=== PATIENT | male | born 1935 | race Caucasian/White ===

== ENCOUNTER 2016-04-28 07:45 | Day surgery (SDC) | payer MEDICARE ==
[~2016-04-28] VITALS: Ht 172.7 cm; Wt 85.0 kg
[~2016-04-28 07:45] MED LIST: 0.9% Sodium Chloride 1,000 ML IV SCH; ALBU2.5V4 INHALATION; ALBU8.5H2 INHALATION; ASCO-294 PO; ASPI-973 PO; ATEN50TA PO; CETI5TAB28 PO; CHOL10008 PO; FLUT12AE8 IH; FLUT16SP NS; LOVA20TA PO; MULT-1018 PO; OMEP20CA11 PO; Sodium Chloride LOK Flush 10 mL Syringe IV PRN; TAMS0.4C29 PO; fentaNYL-PF 50 mCg/mL 2 mL Inj IVPUSH PRN
[2016-04-28 08:21] VITALS: BP 126/79; PULSE 83; RESP 16; O2SAT 96
[2016-04-28 09:25] VITALS: BP 118/73; PULSE 61; RESP 14; O2SAT 95
[2016-04-28 09:35] VITALS: BP 127/78; PULSE 78; RESP 16; O2SAT 94
[2016-04-28 09:45] VITALS: BP 145/85; PULSE 62; RESP 16; O2SAT 96
--- NOTE | 2016-04-28 09:46 | ENDO ---
[address] [address] ENDOSCOPY PROCEDURE PATIENT: BRYON MADRID : 1935 MR#: [id number] ADMIT: 04/28/2016 JOB ID: [id number] DATE OF SERVICE: 04/28/2016 PREOPERATIVE DIAGNOSES: 1. History of multiple colonic polyps. 2. Diffuse diverticulosis. POSTOPERATIVE DIAGNOSES: 1. Ten colon polyps. 2. Diffuse diverticulosis. PROCEDURE: Colonoscopy to cecum with hot forceps polypectomy and snare polypectomy x2. SURGEON: Chirag Schuler MD. INDICATIONS: An 81-year-old man who has a personal history of esophageal cancer, status post esophagectomy by me many years ago but also has a history of multiple colonic polyps. His last colonoscopy was last year. He has diffuse diverticulosis and always has a poor prep and after discussing options with the patient, it was elected to proceed with a repeat colonoscopy. FINDINGS: He had a total of 10 polyps. He again had diffuse diverticulosis. Because of the diverticulosis he had a poor prep. He had one polyp in the cecum, three at the hepatic flexure, one at the splenic flexure, four in the descending colon and one in the proximal rectum. Retroflexed views of the rectum were obscured by fecaliths. DESCRIPTION OF PROCEDURE: The procedure and sedation plan was discussed with the patient and nursing staff, and a procedural time-out was held. He received 5 mg of Versed and 100 mcg of fentanyl. A digital rectal exam was performed. The Olympus PCF-H180AL video colonoscope was passed transanally, advanced to the cecum, withdrawn with 10 polypectomies done by combination of hot snare and hot forceps as stated above. Again, retroflex views of the rectum were obtained. Visualization of the distal rectum was obscured by fecaliths. There were no apparent complications, and he tolerated the procedure well. There is no apparent bleeding. IMPRESSION: 1. Ten colorectal polyps, all about 5 mm in diameter. 2. Diffuse diverticulosis. 3. Poor prep. RECOMMENDATIONS: Repeat colonoscopy in one year. MODIFIER-22: This was significantly more difficult then a typical colonoscopy with 10 polyps identified in the setting of a poor prep. MTDD
--- NOTE | 2016-05-02 17:08 | PATH ---
SURGICAL PATHOLOGY Attending Physician:Fernando Wells CASE STATUS: Signed Out PATIENT NAME: BRYON MADRID PID: [id number] : 1935 DATE COLLECTED:04/28/2016 16:45 SPECIMEN: 1: Colon, Biopsy 2: Colon, Biopsy 3: Colon, Biopsy 4: Colon, Biopsy 5: Rectum, Biopsy CLINICAL HISTORY: 1). SPLENIC FLEXURE X1 2). CECUM POLYP X1 3). HEPATIC FLEXURE POLYP X3 4). DESCENDING COLON POLYP X4 5). RECTAL POLYP X1 FINAL DIAGNOSIS: 1.SPLENIC FLEXURE, POLYP, BIOPSY: TUBULAR ADENOMA. 2.CECUM, POLYP, BIOPSY: TUBULAR ADENOMA. 3.HEPATIC FLEXURE, POLYPS, BIOPSIES: TUBULAR ADENOMA IN 4 OF 6 FRAGMENTS. 4.DESCENDING COLON, POLYPS, BIOPSIES: TUBULAR ADENOMA IN 1 OF 4 FRAGMENTS. 3 FRAGMENTS OF SERRATED LESIONS, FAVOR HYPERPLASTIC POLYPS. 5.RECTUM, POLYP, BIOPSY: TUBULAR ADENOMA. ICD10 CODE D12.0 D12.3 D12.4 D12.8 GROSS DESCRIPTION: Received are five formalin-filled containers, each labeled with the patient' s name. 1. Received in formalin, labeled with the patient' s name and "splenic flexure polyp x1", is one fragment of palma, soft tissue measuring 0.2 x 0.1 x 0.1 cm. The fragment is totally submitted in cassette 1A. 2. Received in formalin, labeled with the patient' s name and "cecum polyp x1", is one fragment of palma, soft tissue measuring 0.1 x 0.1 x 0.1 cm. The fragment is totally submitted in cassette 2A. 3. Received in formalin, labeled with the patient' s name and "hepatic flexure polyp x3", are three fragments of palma, soft tissue ranging in size from 0.1 x 0.1 x 0.1 cm to 0.4 x 0.3 x 0.2 cm. The larger fragment is divided, and all fragments are totally submitted in cassette 3A. 4. Received in formalin, labeled with the patient' s name and "descending colon polyp x4", are four fragments of palma, soft tissue ranging in size from 0.1 x 0.1 x 0.1 cm to 0.2 x 0.1 x 0.1 cm. All fragments are totally submitted in cassette 4A. 5. Received in formalin, labeled with the patient' s name and "rectal polyp x1", is one fragment of palma, soft tissue measuring 0.1 x 0.1 x 0.1 cm. The fragment is totally submitted in cassette 5A. ([id number]) MICRO DESCRIPTION: See diagnosis. ICD-9 CODES: CPT CODES: 1: 21593 2: 90038 3: 89913 4: 20750 5: 08417 Electronically Signed Out Loren Lan MD [facility] [address], [place] [address] Technical component performed at [facility], [facility] [address], [place], [address]
== END 2016-04-28 23:59 | disposition home or self-care (01) ==
LOC: END 07:45
PROVIDERS: ATTEND Surgery
DX: Z12.11 Encounter for screening for malignant neoplasm of colon (principal); Z86.010 Personal history of colon polyps; D12.0 Benign neoplasm of cecum; D12.3 Benign neoplasm of transverse colon; D12.8 Benign neoplasm of rectum; D12.4 Benign neoplasm of descending colon; I25.10 Atherosclerotic heart disease of native coronary artery without angina pectoris; I10 Essential (primary) hypertension; N40.1 Benign prostatic hyperplasia with lower urinary tract symptoms; R33.9 Retention of urine, unspecified; R39.198 Other difficulties with micturition; E78.5 Hyperlipidemia, unspecified; J45.909 Unspecified asthma, uncomplicated; K21.9 Gastro-esophageal reflux disease without esophagitis; Z87.442 Personal history of urinary calculi; Z87.891 Personal history of nicotine dependence; Z85.01 Personal history of malignant neoplasm of esophagus
CPT/HCPCS: 45384; 45385; 88305; 99153; G0500; J2250; J3010; J7030

== ENCOUNTER 2016-05-09 00:58 | Inpatient (IN) | payer MEDICARE ==
[2016-05-09] VITALS (12 sets, daily range): BP systolic 124–153; BP diastolic 77–90; PULSE 71–97; RESP 15–21; O2SAT 94–97
[~2016-05-09] VITALS: Ht 172.7 cm; Wt 81.4 kg
[~2016-05-09 00:58] MED LIST changes: -0.9% Sodium Chloride 1,000 ML IV SCH; -Sodium Chloride LOK Flush 10 mL Syringe IV PRN; -fentaNYL-PF 50 mCg/mL 2 mL Inj IVPUSH PRN
--- NOTE | 2016-05-09 01:00 | ED.REPORT ---
HPI-General Illness Date of Service May 09, 2016 ED Provider: Dr. Jacinto Darden M.D. 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 The patient also reports shortness of breath. He denies other symptoms. EMS found the patient with a BP of 142/90, an SAO2 of 93, and otherwise normal vital signs. Nursing Notes Stated Complaint: PRODUCTIVE COUGH Nursing Notes Reviewed: Yes Allergies: Coded Allergies: Penicillins (Verified Allergy, Severe, 09/16/15) acetaminophen (Verified Allergy, Severe, 09/16/15) celecoxib (Verified Allergy, Severe, 09/16/15) ibuprofen (Verified Allergy, Severe, 09/16/15) metoclopramide (Verified Allergy, Severe, stomach pains, 09/16/15) propranolol (Verified Allergy, Severe, 09/16/15) pseudoephedrine (Verified Allergy, Severe, 09/16/15) pseudoephedrine HCl (Verified Allergy, Severe, "makes heart skip", 09/16/15 ) sildenafil citrate (Verified Allergy, Severe, "almost killed me", 09/16/15) sulfamethoxazole (Verified Allergy, Severe, 09/16/15) tetracycline (Verified Allergy, Severe, 09/16/15) atenolol (Verified Allergy, Unknown, 09/16/15) clindamycin (Verified Allergy, Unknown, 09/16/15) erythromycin ethylsuccinate (Verified Allergy, Unknown, UNKNOWN, 09/16/15) hydrochlorothiazide (Verified Allergy, Unknown, 09/16/15) levofloxacin (Verified Allergy, Unknown, 09/16/15) trimethoprim (Verified Allergy, Unknown, 09/16/15) Scheduled Albuterol HFA (Proair HFA) 8.5 Gm Hfa.aer.ad 2 PUFFS INHALATION Q4H Ascorbate Calcium (Vitamin C) 500 Mg Tablet 500 MG PO DAILY Aspirin (Aspirin) 81 Mg Tablet 81 MG PO DAILY Atenolol (Atenolol) 50 Mg Tablet 50 MG PO DAILY Cetirizine (Cetirizine) 5 Mg Tablet 10 MG PO DAILY Cholecalciferol (Vitamin D3) (Vitamin D3) 1,000 Unit Tab.chew 1,000 UNIT PO DAILY Fluticasone Propionate (Fluticasone Propionate Nasal) 16 Gm [place].susp 1 SPRAY NS BID Fluticasone Propionate (Flovent HFA 110 mcg) 12 Gm Aer.w.adap 1 PUFF IH BID Lovastatin (Lovastatin) 20 Mg Tablet 20 MG PO HS Multivitamin (Multi Vitamin Daily) 1 Each Tablet 1 EACH PO DAILY Omeprazole (Omeprazole) 20 Mg Capsule.dr 20 MG PO BID Tamsulosin ER (Tamsulosin ER) 0.4 Mg Cap.er.24h 0.4 MG PO DAILY Scheduled PRN Albuterol Neb Soln (Albuterol Neb Soln) 2.5 Mg/3 Ml Vial.neb 2.5 MG INHALATION Q4H PRN PRN For Shortness of Breath General Time Seen by MD: 01:00 Chief Complaint Cough Hx Obtained From: Patient Arrived By: Ambulance Sudden in Onset?: Yes Onset Occurred: 1 - 4 hours ago Symptom Duration: Since onset Severity: Current: No pain currently Severity: Maximum: No pain Associated with: Reports: Shortness of breath Pertinent Negative: Relieved by nothing Context Related History: Reports Asthma, Reports Cancer Recent Healthcare: No recent doctor visit Past Medical History Past Medical History Notes: PCP: Dr. 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 Physical Exam Vital Signs Vital Signs Date Time Temp Pulse Resp B/P Pulse Ox O2 Delivery O2 Flow Rate FiO2 05/09/16 04:05 97 21 145/88 96 Room Air 05/09/16 04:00 36.8 76 16 144/77 97 Room Air 05/09/16 01:28 76 16 97 Room Air 05/09/16 01:06 36.8 77 15 144/77 95 Room Air Initial VS: Reviewed Head / Eyes: Atraumatic, Normocephalic ENT: Conjunctiva normal, No scleral icterus Cardiovascular: Regular rate & rhythm, Heart sounds normal Abdomen / GI: Soft, Non-tender Skin: Warm, Dry, No cyanosis Neurologic: Alert, Oriented, Nonfocal Psychiatric: Mood/affect normal, Behavior normal, Normal thought content General/Constitutional: Awake, Alert, No acute distress Respiratory / Chest: Breath sounds = bilat, No respiratory distress Wheezing / Retractions: Positive: Wheezing expiratory (Bilateral) Rhonchus cough Interpretation & Diagnostics INFLUENZA NEGATIVE Lab Results Interpretation Result Diagram: 05/09/16 0140 05/09/16 0140 Test 05/09/16 01:40 05/09/16 03:40 White Blood Count 10.4th/mm3 (3.8-10.1) Red Blood Count 4.82mil/mm3 (4.40-5.80) Hemoglobin 15.4g/dL (13.8-17.2) Hematocrit 46.3% (41.0-50.0) Mean Corpuscular Volume 96.1fL (81-100) Mean Corpuscular Hemoglobin 32.0pg (27.0-35.0) Mean Corpuscular Hemoglobin Concent 33.3% (32.0-37.0) Red Cell Distribution Width 13.2% (12.3-15.4) Platelet Count 169bil/L (150-400) Neutrophils (%) (Auto) 73.8% (40-74) Lymphocytes (%) (Auto) 13.7% (14-46) Monocytes (%) (Auto) 8.9% (4-12) Eosinophils (%) (Auto) 2.8% (0-5) Basophils (%) (Auto) 0.5% (0-3) Prothrombin Time 10.1sec (8.1-12.5) Prothromb Time International Ratio 0.95ratio D-Dimer 5.7mg/L (<0.50) Sodium Level 140mEq/L (134-144) Potassium Level 4.1mEq/L (3.5-5.2) Chloride Level 101mEq/L (97-108) Carbon Dioxide Level 26mmol/L (18-29) Blood Urea Nitrogen 14mg/dL (8-27) Creatinine 0.93mg/dL (0.76-1.27) Estimat Glomerular Filtration Rate 83mL/min (>59) Glucose Level 120mg/dL (60-99) Lactic Acid Level 1.4mmol/L (0.4-2.0) Calcium Level 9.1mg/dL (8.5-10.1) Magnesium Level 2.3mg/dL (1.6-2.6) Total Bilirubin 0.3mg/dL (0.0-1.2) Aspartate Amino Transf (AST/SGOT) 23U/L (0-50) Alanine Aminotransferase (ALT/SGPT) 25U/L (0-44) Alkaline Phosphatase 122U/L (25-160) Troponin T 0.010ug/L (0.0-0.011) Pro-B-Type Natriuretic Peptide 168.4pg/mL (0-486) Total Protein 7.2g/dL (6.4-8.4) Albumin 4.4g/dL (3.4-5.0) Procalcitonin 0.03ng/mL (0.00-0.08) Urine Color Yellow (YELLOW) Urine Appearance Cloudy (CLEAR,HAZY) Urine pH 6.0 (5.0-8.0) Urine Specific [place] 1.005 (1.003-1.035) Urine Protein Tracemg/dL (NEG,TRACE) Urine Glucose (UA) Negativemg/dL (NEGATIVE) Urine Ketones Negativemg/dL (NEGATIVE) Urine Occult Blood Large (NEGATIVE) Urine Nitrite Negative (NEGATIVE) Urine Bilirubin Negative (NEGATIVE) Urine Urobilinogen Normalmg/dL (NORMAL) Urine Leukocyte Esterase Large (NEGATIVE) Urine RBC 3-10/hpf (0-2) Urine WBC >50/hpf (0-5) Urine Epithelial Cells Occasional/hpf (NONE-MOD) Urine Crystals None seen (NONE SEEN) Urine Bacteria Moderate/hpf (NONE-FEW) Urine Hyaline Casts None/lpf (NONE) Urine Granular Casts None seen (NONE SEEN) Urine Waxy Casts None seen (NONE SEEN) Urine Red Blood Cell Casts None seen (NONE SEEN) Urine White Blood Cell Casts None seen (NONE SEEN) Urine Mucus Present (None Seen) Urine Trichomonas None seen (NONE SEEN) Urine Yeast None (NONE SEEN) Urinalysis Comment None Urine Culture Reflexed Indicated ECG Interpretation ECG Interpretation: Sinus or ectopic atrial rhythm rate 74 Time: 01:21 Interpreted by: ED physician X-Ray Chest Interpretation Chest Xray Interpretation: Bilateral atelectasis at bases Nothing acute View: AP & lat Interpretation / Wet Read by: Wet read ED physician CT Chest Interpretation CONCLUSION: Bilateral pulmonary emboli. Findings discussed with Dr. Darden at 05/09/2016 - 3:28:51 AM PDT Study type: CT pulm angiogram Interpretation / Wet Read by: Interpret - Radiologist (Gab Ortiz M.D. ) Re-Eval/Medical Decision Med Decision/Clinical Course 81-year-old presents with shortness of breath cough which is minimally productive, and mild hypoxemia at 93% on room air. D-dimer is grossly elevated at five and CT angiogram reveals bilateral pulmonary emboli. Admitted now in stable condition for IV heparin and further evaluation. No particular risk factors for pulmonary emboli, and recent evaluation for recurrence of his remote esophageal cancer is negative, other cancers may be behind his current hypercoagulable state Source of Hx: Old records Time of Eval: 03:50 Patient Status: Condition improved Re-Evaluation/Progress Note: Discussed with patient x-ray, CT, and lab results, diagnosis, and plan for admit. Patient agrees with plan for care and all questions were addressed. Consultation : Referral / Consult Name: Meggan Webb DO Consulted With: Hospitalist Call Returned at: 03:56 Metal Furnace Operator: Agrees with eval, Agrees with plan, Accepts admit Counseled Regarding: Diagnosis, Lab results, Need for admission Discharge & Departure Shift Change Sign-Out Response to Therapy: Improved Primary Impression: Bilateral pulmonary embolism Disposition: ADMITTED TO HOSPITAL Discharge Condition All VS Reviewed: Yes Condition: Improved Referrals: Alexy Machado MD (PCP) Gisell Attestation Portions of this note were transcribed by Ashlie Ruff. I, Dr. Darden, personally performed the history, physical exam, and medical decision-making; I reviewed and confirmed the accuracy of the information in the transcribed note. Signed by: Gisell Rivera, 05/09/2016, 04:30 copies to: Alexy Machado MD, Christopher W MD May 09, 2016 01:00 ASHLIE RUFF May 09, 2016 01:13
[2016-05-09] MEDS ORDERED: 0.9% Sodium Chloride 1,000 ML IV ONE (01:11)
[2016-05-09] MEDS ORDERED: Albuterol 2.5 mg/3 mL Inhalation Solution NEB ONE (01:15)
[2016-05-09] MEDS ORDERED: Albuterol-Ipratropium 3 mL Inhalation Solution NEB ONE (01:15)
[2016-05-09 01:47] LABS: BASOPHILS % (AUTO) 0.5 % (0-3); EOSINOPHILS % (AUTO) 2.8 % (0-5); MONOCYTES % (AUTO) 8.9 % (4-12); Mean Corpuscular Volume 96.1 fL (81-100); NEUTROPHILS % (AUTO) 73.8 % (40-74); Platelet Count 169 bil/L (150-400)
[2016-05-09 02:08] LABS: INR 0.95 ratio
[2016-05-09 02:16] LABS: D-DIMER 5.7 mg/L (<0.50)
[2016-05-09 02:20] LABS: TROPONIN T 0.01 ug/L (0.0-0.011)
[2016-05-09 02:31] LABS: Magnesium 2.3 mg/dL (1.6-2.6)
[2016-05-09 03:50] LABS: APPEARANCE,URINE CLOUDY (CLEAR,HAZY); COLOR,URINE YELLOW (YELLOW); OCCULT BLOOD,URINE LARGE (NEGATIVE); UROBILINOGEN,URINE NORMAL (NORMAL)
[2016-05-09] MEDS ORDERED: Heparin 5,000 Unit/mL Inj IVPUSH PRN (04:00)
[2016-05-09] MEDS ORDERED: Heparin 5,000 Unit/mL Inj IVPUSH ONE (04:00)
[2016-05-09] MEDS ORDERED: Alum-Mag Hydrox-Simeth 30 mL Suspension PO PRN (04:40)
[2016-05-09] MEDS ORDERED: Ondansetron 2 mg/mL 2 mL Inj IVPUSH PRN (04:40)
[2016-05-09] MEDS ORDERED: Polyethylene Glycol (PEG) 17 Gm Powder PO PRN (04:40)
[2016-05-09] MEDS: Heparin 25K Unit/500mL 0.45 NS 25,000 UNIT in IV Premix 1 EACH IV SCH ×3 (04:49→22:46)
--- NOTE | 2016-05-09 04:59 | PCM.HPMED ---
Subjective Date of Service May 09, 2016 Primary Provider: Admitting Physician: Meggan Webb DO Primary Care Physician: Alexy Machado MD Attending Physician: Meggan Webb DO Admit Status: From the Emergency Department, [facility] Telemetry Chief Complaint: Shortness of breath History of Present Illness: Mr. 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 The patient also reports associated shortness of breath after he cannot stop coughing and "spitting up the thick yellow stuff." He denies any cough or shortness of breath prior to this. No recent sick contact or long drive/air flight. He also denies fever, chills, chest pain, headache, hemoptysis, bloody stool, or any other symptoms. He admits some runny nose and mild sore throat from the cough. He does not know his medications or if he got a flu shot this year. He uses the inhaler intermittently for Asthma. He cannot verify the reaction to the drug allergies. Patient has a history of "massive PE" after his esophagogastrectomy surgery in 2001. He reports that his symptoms this time are not as bad and is curious about how he got the blood clots in his lung. Patient's cough has subsided and he denies any symptoms at this time. EMS found the patient with a BP of 142/90, an SAO2 of 93, and otherwise normal vital signs. In the ED, his vital signs were normal as well besides BP of 144/ 72. He was found to have elevated D-Dimer and CT angiogram showed bilateral pulmonary embolism. Heparin drip was initiated. Procalcitonin 0.03 and negative Influenza screen. Review of Systems: A comprehensive review of systems was conducted with the patient and found to be negative except as above in the History of Present Illness. Allergies Coded Allergies: Penicillins (Verified Allergy, Severe, 09/16/15) acetaminophen (Verified Allergy, Severe, 09/16/15) celecoxib (Verified Allergy, Severe, 09/16/15) ibuprofen (Verified Allergy, Severe, 09/16/15) metoclopramide (Verified Allergy, Severe, stomach pains, 09/16/15) propranolol (Verified Allergy, Severe, 09/16/15) pseudoephedrine (Verified Allergy, Severe, 09/16/15) pseudoephedrine HCl (Verified Allergy, Severe, "makes heart skip", 09/16/15 ) sildenafil citrate (Verified Allergy, Severe, "almost killed me", 09/16/15) sulfamethoxazole (Verified Allergy, Severe, 09/16/15) tetracycline (Verified Allergy, Severe, 09/16/15) atenolol (Verified Allergy, Unknown, 09/16/15) clindamycin (Verified Allergy, Unknown, 09/16/15) erythromycin ethylsuccinate (Verified Allergy, Unknown, UNKNOWN, 09/16/15) hydrochlorothiazide (Verified Allergy, Unknown, 09/16/15) levofloxacin (Verified Allergy, Unknown, 09/16/15) trimethoprim (Verified Allergy, Unknown, 09/16/15) Home Medications Scheduled Albuterol HFA (Proair HFA) 8.5 Gm Hfa.aer.ad 2 PUFFS INHALATION Q4H Ascorbate Calcium (Vitamin C) 500 Mg Tablet 500 MG PO DAILY Aspirin (Aspirin) 81 Mg Tablet 81 MG PO DAILY Atenolol (Atenolol) 50 Mg Tablet 50 MG PO DAILY Cetirizine (Cetirizine) 5 Mg Tablet 10 MG PO DAILY Cholecalciferol (Vitamin D3) (Vitamin D3) 1,000 Unit Tab.chew 1,000 UNIT PO DAILY Fluticasone Propionate (Fluticasone Propionate Nasal) 16 Gm [place].susp 1 SPRAY NS BID Fluticasone Propionate (Flovent HFA 110 mcg) 12 Gm Aer.w.adap 1 PUFF IH BID Lovastatin (Lovastatin) 20 Mg Tablet 20 MG PO HS Multivitamin (Multi Vitamin Daily) 1 Each Tablet 1 EACH PO DAILY Omeprazole (Omeprazole) 20 Mg Capsule.dr 20 MG PO BID Tamsulosin ER (Tamsulosin ER) 0.4 Mg Cap.er.24h 0.4 MG PO DAILY Scheduled PRN Albuterol Neb Soln (Albuterol Neb Soln) 2.5 Mg/3 Ml Vial.neb 2.5 MG INHALATION Q4H PRN PRN For Shortness of Breath PMH Reports Asthma, HTN, and esophageal adenocarcinoma s/p esophagogastrectomy ( 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 Lives with at home. Exam Vital Signs Vital Sign - Last Date Time Temp Pulse Resp B/P Pulse Ox O2 Delivery O2 Flow Rate FiO2 05/09/16 04:05 97 21 145/88 96 Room Air 05/09/16 04:00 36.8 Intake and Output 05/08/16 05/08/16 05/09/16 Cumulative From/Thru 15:00 23:00 07:00 05/09/16 01:55 - 05/09/16 04:00 Intake Total 1000 ml 1000 ml Balance 1000 ml 1000 ml Intake IV Total 1000 ml 1000 ml Exam General: Talkative, No acute distress, well-developed, well-nourished, extremely hard of hearing even with bilateral hearing aids HEENT: Normocephalic, atraumatic. External ears without defect. Pupils equal, round, and reactive to light and accommodation. Anicteric sclerae, moist conjunctivae, and no lid lag. Oropharynx free of erythema and cobble stoning with moist mucosa. Neck: Supple with full range of motion. No jugular venous distension. No bruits. No lymphadenopathy or thyromegaly. Cardiovascular: Regular rate and rhythm with no murmurs, rubs, or gallops appreciated Pulmonary: Mild scattered crackles. No wheezes or rhonchi noted. No cough observed. Normal respiratory effort with no use of accessory muscles. Abdomen: Bowel tones present. Soft, nontender, nondistended. No hepatosplenomegaly or masses appreciated. Extremities: No clubbing, cyanosis, edema, or lymphadenopathy appreciated. No calf tenderness Skin: Normal temperature, turgor, and texture; no rash, ulcers, or subcutaneous nodules appreciated. Neurological: Cranial nerves grossly intact. Normal muscle strength and tone. Sensory function within normal limits. Psychiatric: Normal mood and affect. Alert and oriented to person, place, and time. Lab and Diagnostics Result Diagram: 05/09/16 0140 05/09/16 0140 12-lead ECG Sinus rate (74) and rhythm with no acute ischemic changes. 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 He was found to have bilateral pulmonary embolism on the CT angio and thus was admitted. 1. Acute, unprovoked bilateral pulmonary embolism, present on admission, active. - Patient presented with dyspnea and productive cough. Currently hemodynamically stable, thus no indication for thrombolytic therapy. - Elevated D-Dimer (5.9) and PE was confirmed with CT angio. - Respiratory support with supplemental oxygen as needed for SpO2>90%. - Continue Heparin gtt. Consider starting anticoagulation such as Warfarin. - Check Echo in the AM. No Echo on our record. - UA positive for bacteria and WBC. Urine culture pending. No other sign of infection, thus will hold off on starting antibiotics. - Continue to monitor vital signs. - Encourage ambulation. 2. Intermittent asthma, chronic, stable. - Resume Albuterol inhaler PRN 3. Remote history of esophageal adenocarcinoma, presumed stable. - Need to follow up as outpatient to determine if 4. Hypertension, chronic, stable. - Continue home Atenolol after medication reconciliation. (Atenolol listed in the allergy list but patient states he might take Atenolol). - Continue to monitor. 5. Hyperlipidemia, chronic, stable. - Resume home Lovastatin 20mg HS 6. Enlarged prostate, chronic, presume stable. - Continue Tamsulosin. 7. Medication reconciliation: to be done by the day team. Patient stated that his knows more about his medical issues than he does. 8. CODE STATUS: FULL per the patient. Patient is admitted under inpatient status with expected length of stay greater than 2 midnights due to severity of presenting symptoms, risk of adverse event, and complexity of treatment plan. Pain Evaluation: Adequate Pain Control GI Prophylaxis: H2 heriberto VTE Prophylaxis: Other (heparin ggt) Resuscitation Status: CPR: Attempt Resuscitation Attending Statement The patient was seen and examined together with house staff on 05/09/2016 and I agree with the history, exam and plan as outlined in the note above. copies to: Alexy Machado MD, Ngochanh H DO May 09, 2016 04:59 Meggan Webb DO May 28, 2016 21:49
--- NOTE | 2016-05-09 05:46 | NUR ---
admission patient admitted heparin gtt infusing. very hard of hearing. tele SR reviewed plan of care
--- NOTE | 2016-05-09 05:47 | NUR ---
med rec not complete unable to complete med rec. patient poor historian
--- NOTE | 2016-05-09 09:01 | PCM.PNMED ---
Subjective Date of Service May 09, 2016 Subjective Patient has a cough productive of yellow phlegm. No dyspnea or chest pain. No leg pain or swelling. No nausea vomiting or abdominal pain. Exam Vital Signs Vital Sign - Last Date Time Temp Pulse Resp B/P Pulse Ox O2 Delivery O2 Flow Rate FiO2 05/09/16 05:30 Supplement Oxygen 05/09/16 05:20 36.8 94 16 124/86 96 Intake and Output 05/08/16 05/08/16 05/09/16 Cumulative From/Thru 15:00 23:00 07:00 05/09/16 01:55 - 05/09/16 05:25 Intake Total 1000 ml 1000 ml Balance 1000 ml 1000 ml Intake IV Total 1000 ml 1000 ml Exam Oriented 3, fluent speech Anicteric sclera Neck is supple. Lungs are clear with normal rate and effort. Heart is regular without murmur gallop or rub Abdomen soft nontender. Extremities with 1+ edema bilaterally good pedal pulses. IVs and Medications Medications Reviewed: Medications were reviewed in detail Lab and Diagnostics Result Diagram: 05/09/16 0140 05/09/16 0140 12-lead ECG Sinus rate (74) and rhythm with no acute ischemic changes. 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 He was found to have bilateral pulmonary embolism on the CT angio and thus was admitted. 1. Acute, unprovoked bilateral pulmonary embolism, present on admission, active. - Patient presented with dyspnea and productive cough. Currently hemodynamically stable, thus no indication for thrombolytic therapy. - Elevated D-Dimer (5.9) and PE was confirmed with CT angio. - Respiratory support with supplemental oxygen as needed for SpO2>90%. - Continue Heparin gtt. Consider starting anticoagulation such as Warfarin. - Check Echo in the AM. No Echo on our record. - UA positive for bacteria and WBC. Urine culture pending. No other sign of infection, thus will hold off on starting antibiotics. - Continue to monitor vital signs. - Encourage ambulation. No change to her medical plan. We will obtain a 2-D echo this morning. We will also begin oral anticoagulation. 2. Intermittent asthma, chronic, stable. - Resume Albuterol inhaler PRN The patient is coughing up green sputum. We will continue to follow clinically. 3. Remote history of esophageal adenocarcinoma, presumed stable. - Need to follow up as outpatient to determine if 4. Hypertension, chronic, stable. - Continue home Atenolol after medication reconciliation. (Atenolol listed in the allergy list but patient states he might take Atenolol). - Continue to monitor. 5. Hyperlipidemia, chronic, stable. - Resume home Lovastatin 20mg HS 6. Enlarged prostate, chronic, presume stable. - Continue Tamsulosin. 7. Medication reconciliation: to be done by the day team. Patient stated that his knows more about his medical issues than he does. 8. CODE STATUS: FULL per the patient. Patient is admitted under inpatient status with expected length of stay greater than 2 midnights due to severity of presenting symptoms, risk of adverse event, and complexity of treatment plan. Pain Evaluation: Adequate Pain Control GI Prophylaxis: H2 heriberto VTE Prophylaxis: Other (heparin ggt) Resuscitation Status: CPR: Attempt Resuscitation Time spent 25 minutes Wang Schuler MD May 09, 2016 09:01
--- NOTE | 2016-05-09 09:47 | DRSVH ---
PROCEDURE: CT ANGIO CHEST PULMONARY EMBOLISM ([id number]) INDICATIONS: dimer 5 TECHNIQUE: After the administration of intravenous contrast, 2 mm thick sections acquired from the pulmonary api xenia to the posterior costophrenic angles. 3-dimensional maximum intensity projection (MIP) coronal a nd sagittal reformats were then acquired through the thorax. For radiation dose reduction, the follo wing was used: automated exposure control, adjustment of mA and/or kV according to patient size. COMPARISON: None. FINDINGS: Image quality: Excellent. Pulmonary arteries: Multiple filling defects noted in left upper lobe, right upper lobe, right middle lobe and right lower lobe pulmonary arteries compatible with pulmonary emboli. Lungs and pleura: Lungs are clear. No pleural effusions or pneumothorax. Central and peripheral ai rways are patent. Mediastinum: Heart size is normal, without pericardial effusion. No mediastinal or hilar adenopathy . Thoracic aorta is normal in caliber and enhancement. Atherosclerotic calcifications are noted in t he aorta, great vessels and the coronary vasculature. Postsurgical changes compatible with esophagect luis and gastric pull through procedure noted. Bones and chest wall: No suspicious bony lesions. Ribs and thoracic spine appear intact throughout. Thyroid gland 1 cm hypoattenuating nodule in the left lobe. No axillary or supraclavicular adenopa thy. Abdomen: Calcifications noted in the pancreas compatible chronic pancreatitis. Visualized upper abdo augustina solid organs otherwise appear normal in the early arterial phase of enhancement. Scattered dive rticuli in the visualized colon without evidence of diverticulitis. IMPRESSION: 1. Abnormal study demonstrating bilateral pulmonary emboli. 2. Status post esophagectomy with gastric pull-through. 3. 1 cm left thyroid nodule. 4. Colonic diverticulosis without evidence of diverticulitis. 5. Atherosclerosis including the coronary vasculature. Dictated by: Mague Oden MD, PhD on 05/09/2016 at 9:42 Approved by: Mague Oden MD, PhD on 05/09/2016 at 9:46
[2016-05-09] MEDS ORDERED: ATOR10TA66 PO (10:02)
[2016-05-09] MEDS ORDERED: FINA5TAB9 PO (10:05)
--- NOTE | 2016-05-09 10:45 | DRSVH ---
PROCEDURE: X-RAY CHEST, TWO VIEWS ([id number]) INDICATIONS: COUGH, SPUTUM. TECHNIQUE: Two views of the chest were acquired. COMPARISON: [facility], CR, XR CHEST 2VW, 06/25/2015, 9:09. FINDINGS: Surgical changes and devices: Surgical clips within the superior mediastinum and left neck as well as the upper abdomen. Lungs and pleura: No pleural effusions or pneumothorax. Lungs are clear. Large hiatal hernia prese nt. Lung volumes are increased with flattening of the hemidiaphragms suggesting COPD. Mediastinum: Mediastinal contours are normal. Heart size is normal. Bones and chest wall: No suspicious bony abnormalities. Soft tissues appear unremarkable. IMPRESSION: 1. No acute cardiopulmonary disease. Dictated by: Gennaro AGUERO Interpreted: Mague Oden MD on 05/09/2016 at 8:49 Transcribed by: NORY on 05/09/2016 at 13:44 Approved by: Mague Oden MD, PhD on 05/09/2016 at 16:30
--- NOTE | 2016-05-09 11:21 | DRSVH ---
[facility] [address] [place] [address] Echocardiogram Report Name: BRYON MADRID LStudy Date: 05/09/2016 Height: 68 in Hospital Exam Location: [facility] Weight: 18 8 lb Gender: Male BSA: 2.0 m2 : 1935 Age: 81 yrs BP: 124/86 mmHg Reason For Study: Pulmonary- Embolism Ordering Physician: HOSPITALIST [facility] Performed By: Bekah Fernando Referring Physician: Dr. Alexy Machado Interpretation Summary Technically difficult study limit valve visualization. 1) Normal left ventricular thickness, size, wall motion, and systolic function (EF 60-65%). 2) Proximal septal thickening present, but no left ventricular outflow gradient present. 3) Normal right ventricular size and function. 4) Grade 2 diastolic dysfunction present consistent with elevated filling pressures. 5) Age related calcification of the aortic valve but no significant stenosis or regurgitation present. 6) Mild pulmonary hypertension present, estimated systolic pulmonary pressure of 38mmHg. 7) No prior Echo available for comparison. Procedure: A two-dimensional transthoracic echocardiogram with color flow and Doppler was performed. There is no prior echocardiogram noted for this patient. The study quality was technically adequate. The patient was in normal sinus rhythm during the exam. Left Ventricle: The left ventricle is normal in size. Proximal septal thickening is noted. The ejection fraction is estimated to be 60-65%. The left ventricular ejection fraction is normal. There are no obvious focal wall motion abnormalities noted but poor endocardial definition reduces the sensitivity for the detection of such. Assessment of diastolic parameters suggests a pseudonormalization pattern, consistent with elevated filling pressures. Right Ventricle: The right ventricle is at the upper limits of normal in size. The right ventricular systolic function is normal. Atria: The left atrium is severely dilated. Right atrial size is normal. There is no Doppler evidence for an interatrial shunt. Mitral Valve: There is mild mitral annular calcification. The mitral valve leaflets are mildly calcified. There is trace mitral regurgitation. Aortic Valve: The aortic valve is mildly calcified. Leaflet mobility is mildly reduced. The aortic valve is not well visualized. The peak aortic velocity is 2.1 m/sec. The calculated aortic valve area is 2.8 cm2. The aortic valve mean gradient is 7.8 mmHg. There is no aortic valve stenosis. There is trace aortic regurgitation. Tricuspid Valve: The tricuspid valve is normal in structure and function. There is a trace or physiologic amount of tricuspid regurgitation. The right ventricular systolic pressure is estimated at 38 mmHg assuming a right atrial pressure of 8 mm Hg. Pulmonic Valve: The pulmonic valve is not well seen, but is grossly normal. There is no pulmonic valvular regurgitation. Great Vessels: The aortic root is normal size. The ascending aorta is mildly enlarged. The aortic arch is at the upper limits of normal in size. The pulmonary artery is normal size. The IVC is of normal diameter and collapses less than 50% with a sniff. This suggests a right atrial pressure of 8 mm Hg. Pericardium/ Pleura There is no pericardial effusion. MMode/2D Measurements & Calculations LVIDd: 4.5 cm RA long axis LVOT diam: 2.2 cm LVIDs: 2.6 cm LA A2 area: 27.1 cm AoV Opening FS: 43.1 % LA A4 area: 31.8 cm RA area EPSS: 0.74 cm LA length (vol) Ao root diam IVSd: 1.3 cm : 18.9 cm LVPWd: 0.83 cm LA vol: 106.4 ml RA vol Aortic Jxn: 3.2 cm LA vol index : 48.3 ml asc Aorta Diam RA : 24.2 mm2 Ao Arch Diam (Prox IVC diam: 1.9 cm Trans): 3.2 cm LV cook. diameter/BSA LV sys. diameter/BSA RVD1 (basal) TAPSE: 2.4 cm (cm/m^2): 2.3 (cm/m^2): 1.3 Doppler Measurements & Calculations Ao V2 max MV E max mandeep MV E/A: 0.65 TR max mandeep : 208.2 cm/sec : 89.7 cm/sec Med Peak E' Mandeep : 273.3 cm/sec Ao max PG MV A max mandeep TR max PG : 17.3 mmHg : 137.6 cm/sec E/E' med: 17.0 : 29.9 mmHg Ao mean PG MV P1/2t: 54.0 msec Lat Peak E' Mandeep PA V2 max : 105.8 cm/sec LVOT Max Mandeep E/E' lat: 12.3 PA mean PG : 111.5 cm/sec E/e' average: 14.7 Pulm A Revs Dur PA Accel Time ALMITA(I,D): 2.8 cm : 0.11 sec sev ratio MV A dur: 0.13 sec MV dec time MV P1/2t max mandeep Ao V2 mean LV V1 max PG : 0.18 sec : 127.7 cm/sec MVA(P1/2t): 4.1 cm2 Ao V2 VTI: 36.8 cm LV V1 VTI ALMITA(V,D): 2.1 cm2 : 25.6 cm PA V2 mean ALMITA indexed to BSA Pulm A Revs Dur - MV A : 67.8 cm/sec (cm^2/m^2): 1.4 Dur: -0.00 msec Reading Physician:11:20 AM
[2016-05-09] MEDS ORDERED: CLOTRIMAZOLE TOP (13:38)
[2016-05-09] MEDS ORDERED: FLUT12AE8 IH (13:38)
[2016-05-09] MEDS ORDERED: OLP.1OP5 AFFECT_EYE (13:42)
--- NOTE | 2016-05-09 16:47 | NUR ---
spiritual care: pt request pt a concise historian in terms of his personal history and hoang expression. 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 Pt also discussed his health history in detail, describing extensive GI surgery and its impact on him. Pt animated, pleasant, and expressing "not worried" as he described his health situation. at bedside, supportive. Prayer.
--- NOTE | 2016-05-09 18:28 | NUR ---
HEPARIN P-Patient on heparin drip for bilateral PE. I-1600 PTT was 136. Heparin drip stopped for hour and turned down from 20 units to 16units/kg/hr. E- Nest PTT 2200. Patient denies chest pain, ra O2 sat 94%.
[2016-05-09] MEDS: Fluticasone 0.05% 15 Spray/2 Gm 16 Gm Nasal Spray NASAL SCH (22:47)
[2016-05-10] VITALS (8 sets, daily range): BP systolic 127–156; BP diastolic 83–99; PULSE 61–78; RESP 18–22; O2SAT 94–96
--- NOTE | 2016-05-10 02:40 | NUR ---
Med Rec: Med rec had been completed by RN, however still not reviewed by MD. Per shift report RN had notified day team. Message sent to NOC hospitalist- only order received was for nasal spray.
[2016-05-10] MEDS: Fluticasone 0.05% 15 Spray/2 Gm 16 Gm Nasal Spray NASAL SCH ×3 (08:19→21:03)
--- NOTE | 2016-05-10 12:32 | NUR ---
Social Work Note: Initial Assessment Data& Assessment: EMR reviewed. SW met with pt at bedside to discuss discharge planning, SW role explained. Paul Webb is a 81 year old male admitted on 05/09/2016 for bilateral pulmonary embolism. Pt has Medicare and [employer] supplemental insurance coverage. Pt sees Dr. Alexy Machado for primary care. Pt lives in [place] with his and is independent at baseline. Pt does not use any DME at home, however he does sleep in a hospital bed for comfort. Pt lives in a manufactured home with 4 steps to enter the home. Pt drives. Pt does not have HH or SNF hx. Pt does not have LTC insurance or VA benefits. Pt is currently independent in his room. Pt has completed DPOA/Advance Directive paperwork completed, SW requested a copy for his chart. Pt to transport pt home when medically ready. Pt denies any other needs at this time. SW to continue to follow if any needs arise. Plan:Anticipated discharge home via POV when medically ready. Pt to transport pt home when medically ready. Pt denies any other needs at this time. SW to continue to follow if any needs arise. MADISON Aleman Addendum: 05/10/16 at 1239 by LEAH CARMONA Amended: Links added.
--- NOTE | 2016-05-10 14:23 | DRSVH ---
PROCEDURE: US VENOUS LEG DUPLEX BILATERAL INDICATIONS: PE TECHNIQUE: Real-time imaging, as well as color and pulse Doppler interrogation, were performed of the deep veins of both legs from the inguinal ligament to the popliteal fossa. COMPARISON: None. FINDINGS: On the right deep veins are normally compressible, and free of intraluminal thrombus. Union r and pulse Doppler demonstrate normal phasic intravascular flow. There is normal augmentation respo nse to distal compression maneuver. In contrast, on the left there is DVT seen within the mid-to-dis mohan superficial femoral vein. This does not extend into the popliteal vein. IMPRESSION: No DVT found on the right. On the left, however, there is DVT seen within the mid-to-dis mohan superficial femoral vein, without extension into the popliteal vein. Dictated by: Anuj Dias M.D. on 05/10/2016 at 13:16 Approved by: Anuj Dias M.D. on 05/10/2016 at 14:22
--- NOTE | 2016-05-10 14:48 | PCM.PNMED ---
Subjective Date of Service May 10, 2016 Subjective He is doing well. He denies any leg pain or swelling. No cough or dyspnea. No dyspnea on exertion. No hemoptysis. No nausea vomiting or diarrhea. He does note a week ago he tried to use his exercise bike for the first time in a long time and can only go about 10 minutes without having dyspnea compared to a half-hour before. Exam Vital Signs Vital Sign - Last Date Time Temp Pulse Resp B/P Pulse Ox O2 Delivery O2 Flow Rate FiO2 05/10/16 12:23 36.6 70 18 141/86 96 Room Air Intake and Output 05/09/16 05/09/16 05/10/16 Cumulative From/Thru 15:00 23:00 07:00 05/09/16 01:55 - 05/10/16 05:28 Intake Total 560 ml 795 ml 2355 ml Output Total 2 ml 2 ml Balance 558 ml 795 ml 2353 ml Intake Oral 560 ml 500 ml 1060 ml IV Total 295 ml 1295 ml Output Urine Total 2 ml 2 ml # Voids 3 3 # Bowel Movements 0 0 0 Exam Alert oriented 3, no distress. Fluent speech Neck supple. Lungs are clear with normal rate and effort. Heart is regular without murmur gallop or rub. Abdomen soft nontender Extremities pedal edema good pedal pulses. Skin is free of rash or lesions. IVs and Medications Medications Reviewed: Medications were reviewed in detail Lab and Diagnostics Result Diagram: 05/09/16 0140 05/09/16 0140 12-lead ECG Sinus rate (74) and rhythm with no acute ischemic changes. 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 He was found to have bilateral pulmonary embolism on the CT angio and thus was admitted. 1. Acute, unprovoked bilateral pulmonary embolism, present on admission, active. - Patient presented with dyspnea and productive cough. Currently hemodynamically stable, thus no indication for thrombolytic therapy. - Elevated D-Dimer (5.9) and PE was confirmed with CT angio. - Respiratory support with supplemental oxygen as needed for SpO2>90%. - Continue Heparin gtt. Consider starting anticoagulation such as Warfarin. - Check Echo in the AM. No Echo on our record. - UA positive for bacteria and WBC. Urine culture pending. No other sign of infection, thus will hold off on starting antibiotics. - Continue to monitor vital signs. - Encourage ambulation. 2-D echocardiogram reveals mild heart strain. The patient has been on unfractionated heparin drip for 2 days. He would like to discharge tomorrow on May 11. I believe he is a reasonable candidate for Apixiban (Eliquis). We will duplex ultrasound his legs today to rule out a massive clot burden. Assuming that this is reasonable he likely can have his heparin stopped tomorrow and be sent out with a DEXA band 10 mg twice a day for 7 days and then 5 mg twice a day for 3-6 months. I will get social work Prescriptions today and have these run through his insurance for preauthorization. 2. Intermittent asthma, chronic, stable. - Resume Albuterol inhaler PRN The patient is coughing up green sputum. We will continue to follow clinically. 3. Remote history of esophageal adenocarcinoma, presumed stable. - Need to follow up as outpatient to determine if 4. Hypertension, chronic, stable. - Continue home Atenolol after medication reconciliation. (Atenolol listed in the allergy list but patient states he might take Atenolol). - Continue to monitor. 5. Hyperlipidemia, chronic, stable. - Resume home Lovastatin 20mg HS 6. Enlarged prostate, chronic, presume stable. - Continue Tamsulosin. 7. CODE STATUS: FULL per the patient. Patient is admitted under inpatient status with expected length of stay greater than 2 midnights due to severity of presenting symptoms, risk of adverse event, and complexity of treatment plan. Probable discharge tomorrow, May 11 on Apixiban Pain Evaluation: Adequate Pain Control GI Prophylaxis: H2 heriberto VTE Prophylaxis: Other (heparin ggt) VTE Mechanical Devices: Intermittant Pneumatic CD Resuscitation Status: CPR: Attempt Resuscitation Time spent 30 minutes Wang Schuler MD May 10, 2016 14:48
--- NOTE | 2016-05-10 14:50 | PCM.DIMED ---
Wang Schuler MD 05/10/16 1450: Discharge Instructions Date of Service May 10, 2016 Dates of Hospitalization May 09, 2016 at 04:14 Discharge Diagnosis Discharge Diagnosis 1. Acute, unprovoked bilateral pulmonary embolism, present on admission, improved. 2. Chronic asthma 3. Remote history of esophageal adenocarcinoma 4. Hypertension 5. Hyperlipidemia 6. BPH Diet No restrictions Activity No restrictions Call your provider Fever or Chills, Shortness of breath, Chest pain Patient Instructions PCP within one week Follow-up with PCP in: 1 week Max Wynn MD 05/17/16 1104: Discharge Instructions Date of Service May 17, 2016 Wang Schuler MD May 10, 2016 14:50 Max Wynn MD May 17, 2016 11:04
[2016-05-10] MEDS ORDERED: APIX5TAB PO (14:51)
[2016-05-10] MEDS: Heparin 25K Unit/500mL 0.45 NS 25,000 UNIT in IV Premix 1 EACH IV SCH (18:26)
--- NOTE | 2016-05-10 18:37 | NUR ---
Heparin Heparin running at 16 units/kg/hr per protocol. PTT therapuetic x 2. NO change in does will schedule PTT draw for tomorrow AM
--- NOTE | 2016-05-10 22:57 | NUR ---
Anxiety Pt anxious over being given too many blood thinning agents. Pt reminded that pt is only receiving IV Heparin and no oral blood thinners. Pt advised to speak with provider in the AM regarding any concerns and questions for his ordered medications and that the AM nurse will be also notified of his concerns.
[2016-05-11] VITALS (7 sets, daily range): BP systolic 103–146; BP diastolic 68–94; PULSE 59–92; RESP 16–24; O2SAT 93–95
[2016-05-11] MEDS: Fluticasone 0.05% 15 Spray/2 Gm 16 Gm Nasal Spray NASAL SCH (10:27)
--- NOTE | 2016-05-11 13:40 | NUR ---
spiritual care: pt request conversational visit. pt shared his concern over blood loss--also reflected on his life work Addendum: 05/11/16 at 1545 by ABHISHEK LEON CM brought pt and written resource.
[2016-05-11] MEDS: Heparin 25K Unit/500mL 0.45 NS 25,000 UNIT in IV Premix 1 EACH IV SCH (14:04)
--- NOTE | 2016-05-11 16:32 | PCM.PNMED ---
Subjective Date of Service May 11, 2016 Subjective Patient has no current complaints about did have some loose stool earlier today. Denies any abdominal pain. Exam Vital Signs Vital Sign - Last Date Time Temp Pulse Resp B/P Pulse Ox O2 Delivery O2 Flow Rate FiO2 05/11/16 12:41 70 05/11/16 12:25 36.8 18 103/74 94 Room Air Intake and Output 05/10/16 05/10/16 05/11/16 Cumulative From/Thru 15:00 23:00 07:00 05/09/16 01:55 - 05/11/16 05:26 Intake Total 1316 ml 300 ml 3971 ml Output Total 2 ml Balance 1316 ml 300 ml 3969 ml Intake Oral 960 ml 300 ml 2320 ml IV Total 356 ml 1651 ml Output Urine Total 2 ml # Voids 3 3 9 # Bowel Movements 0 1 1 Exam Constitutional: Elderly male in no acute distress Head: Normocephalic atraumatic Chest: Clear to auscultation Cor: Regular rate and rhythm S1-S2 Abdomen: Soft nontender bowel sounds present Extremities exam no pedal edema Neuro: Alert and oriented 3, motor strength is intact bilaterally IVs and Medications Medications Reviewed: Medications were reviewed in detail Lab and Diagnostics Laboratory Tests 72 Hours Test 05/09/16 01:40 05/09/16 03:40 05/09/16 04:20 05/09/16 10:45 White Blood Count 10.4th/mm3 (3.8-10.1) Red Blood Count 4.82mil/mm3 (4.40-5.80) Hemoglobin 15.4g/dL (13.8-17.2) Hematocrit 46.3% (41.0-50.0) Mean Corpuscular Volume 96.1fL (81-100) Mean Corpuscular Hemoglobin 32.0pg (27.0-35.0) Mean Corpuscular Hemoglobin Concent 33.3% (32.0-37.0) Red Cell Distribution Width 13.2% (12.3-15.4) Platelet Count 169bil/L (150-400) Neutrophils (%) (Auto) 73.8% (40-74) Lymphocytes (%) (Auto) 13.7% (14-46) Monocytes (%) (Auto) 8.9% (4-12) Eosinophils (%) (Auto) 2.8% (0-5) Basophils (%) (Auto) 0.5% (0-3) Prothrombin Time 10.1sec (8.1-12.5) Prothromb Time International Ratio 0.95ratio Activated Partial Thromboplast Time 26.6sec (22.8-33.0) 27.1sec (22.8-33.0) 105.9sec (22.8-33.0) D-Dimer 5.7mg/L (<0.50) Sodium Level 140mEq/L (134-144) Potassium Level 4.1mEq/L (3.5-5.2) Chloride Level 101mEq/L (97-108) Carbon Dioxide Level 26mmol/L (18-29) Blood Urea Nitrogen 14mg/dL (8-27) Creatinine 0.93mg/dL (0.76-1.27) Estimat Glomerular Filtration Rate 83mL/min (>59) Glucose Level 120mg/dL (60-99) Lactic Acid Level 1.4mmol/L (0.4-2.0) Calcium Level 9.1mg/dL (8.5-10.1) Magnesium Level 2.3mg/dL (1.6-2.6) Total Bilirubin 0.3mg/dL (0.0-1.2) Aspartate Amino Transf (AST/SGOT) 23U/L (0-50) Alanine Aminotransferase (ALT/SGPT) 25U/L (0-44) Alkaline Phosphatase 122U/L (25-160) Troponin T 0.010ug/L (0.0-0.011) Pro-B-Type Natriuretic Peptide 168.4pg/mL (0-486) Total Protein 7.2g/dL (6.4-8.4) Albumin 4.4g/dL (3.4-5.0) Procalcitonin 0.03ng/mL (0.00-0.08) Urine Color Yellow (YELLOW) Urine Appearance Cloudy (CLEAR,HAZY) Urine pH 6.0 (5.0-8.0) Urine Specific [place] 1.005 (1.003-1.035) Urine Protein Tracemg/dL (NEG,TRACE) Urine Glucose (UA) Negativemg/dL (NEGATIVE) Urine Ketones Negativemg/dL (NEGATIVE) Urine Occult Blood Large (NEGATIVE) Urine Nitrite Negative (NEGATIVE) Urine Bilirubin Negative (NEGATIVE) Urine Urobilinogen Normalmg/dL (NORMAL) Urine Leukocyte Esterase Large (NEGATIVE) Urine RBC 3-10/hpf (0-2) Urine WBC >50/hpf (0-5) Urine Epithelial Cells Occasional/hpf (NONE-MOD) Urine Crystals None seen (NONE SEEN) Urine Bacteria Moderate/hpf (NONE-FEW) Urine Hyaline Casts None/lpf (NONE) Urine Granular Casts None seen (NONE SEEN) Urine Waxy Casts None seen (NONE SEEN) Urine Red Blood Cell Casts None seen (NONE SEEN) Urine White Blood Cell Casts None seen (NONE SEEN) Urine Mucus Present (None Seen) Urine Trichomonas None seen (NONE SEEN) Urine Yeast None (NONE SEEN) Urinalysis Comment None Urine Culture Reflexed Indicated Hold Stearns Top Tube Received (Received) Test 05/09/16 15:50 05/09/16 22:17 05/10/16 03:25 05/10/16 10:08 Activated Partial Thromboplast Time 136.1sec (22.8-33.0) 75.9sec (22.8-33.0) 84.6sec (22.8-33.0) 78.1sec (22.8-33.0) Test 05/11/16 03:35 Activated Partial Thromboplast Time 67.9sec (22.8-33.0) Result Diagram: 05/09/16 0140 05/09/16 0140 12-lead ECG Sinus rate (74) and rhythm with no acute ischemic changes. Cardiac Echo Impressions Patient Name: BRYON MADRID MR#: [id number] Location: [facility] Ordering Phys: Lito Alston DO Date of Service: 05/09/[address] [place] [address] Echocardiogram Report Name: BRYON MADRID LStudy Date: 05/09/2016 Height: 68 in Hospital Exam Location: [facility] Weight: 18 8 lb Gender: Male BSA: 2.0 m2 : 1935 Age: 81 yrs BP: 124/86 mmHg Reason For Study: Pulmonary- Embolism Ordering Physician: [facility]PITALIST [facility] Performed By: Bekah Fernando Referring Physician: Dr. Alexy Machado Interpretation Summary Technically difficult study limit valve visualization. 1) Normal left ventricular thickness, size, wall motion, and systolic function (EF 60-65%). 2) Proximal septal thickening present, but no left ventricular outflow gradient present. 3) Normal right ventricular size and function. 4) Grade 2 diastolic dysfunction present consistent with elevated filling pressures. 5) Age related calcification of the aortic valve but no significant stenosis or regurgitation present. 6) Mild pulmonary hypertension present, estimated systolic pulmonary pressure of 38mmHg. 7) No prior Echo available for comparison. Procedure: A two-dimensional transthoracic echocardiogram with color flow and Doppler was performed. There is no prior echocardiogram noted for this patient. The study quality was technically adequate. The patient was in normal sinus rhythm during the exam. Left Ventricle: The left ventricle is normal in size. Proximal septal thickening is noted. The ejection fraction is estimated to be 60-65%. The left ventricular ejection fraction is normal. There are no obvious focal wall motion abnormalities noted but poor endocardial definition reduces the sensitivity for the detection of such. Assessment of diastolic parameters suggests a pseudonormalization pattern, consistent with elevated filling pressures. Right Ventricle: The right ventricle is at the upper limits of normal in size. The right ventricular systolic function is normal. Atria: The left atrium is severely dilated. Right atrial size is normal. There is no Doppler evidence for an interatrial shunt. Mitral Valve: There is mild mitral annular calcification. The mitral valve leaflets are mildly calcified. There is trace mitral regurgitation. Aortic Valve: The aortic valve is mildly calcified. Leaflet mobility is mildly reduced. The aortic valve is not well visualized. The peak aortic velocity is 2.1 m/sec. The calculated aortic valve area is 2.8 cm2. The aortic valve mean gradient is 7.8 mmHg. There is no aortic valve stenosis. There is trace aortic regurgitation. Tricuspid Valve: The tricuspid valve is normal in structure and function. There is a trace or physiologic amount of tricuspid regurgitation. The right ventricular systolic pressure is estimated at 38 mmHg assuming a right atrial pressure of 8 mm Hg. Pulmonic Valve: The pulmonic valve is not well seen, but is grossly normal. There is no pulmonic valvular regurgitation. Great Vessels: The aortic root is normal size. The ascending aorta is mildly enlarged. The aortic arch is at the upper limits of normal in size. The pulmonary artery is normal size. The IVC is of normal diameter and collapses less than 50% with a sniff. This suggests a right atrial pressure of 8 mm Hg. Pericardium/ Pleura There is no pericardial effusion. MMode/2D Measurements & Calculations LVIDd: 4.5 cm RA long axis LVOT diam: 2.2 cm LVIDs: 2.6 cm LA A2 area: 27.1 cm AoV Opening FS: 43.1 % LA A4 area: 31.8 cm RA area EPSS: 0.74 cm LA length (vol) Ao root diam IVSd: 1.3 cm : 18.9 cm LVPWd: 0.83 cm LA vol: 106.4 ml RA vol Aortic Jxn: 3.2 cm LA vol index : 48.3 ml asc Aorta Diam RA : 24.2 mm2 Ao Arch Diam (Prox IVC diam: 1.9 cm Trans): 3.2 cm LV cook. diameter/BSA LV sys. diameter/BSA RVD1 (basal) TAPSE: 2.4 cm (cm/m^2): 2.3 (cm/m^2): 1.3 Doppler Measurements & Calculations Ao V2 max MV E max mandeep MV E/A: 0.65 TR max mandeep : 208.2 cm/sec : 89.7 cm/sec Med Peak E' Mandeep : 273.3 cm/sec Ao max PG MV A max mandeep TR max PG : 17.3 mmHg : 137.6 cm/sec E/E' med: 17.0 : 29.9 mmHg Ao mean PG MV P1/2t: 54.0 msec Lat Peak E' Mandeep PA V2 max : 105.8 cm/sec LVOT Max Mandeep E/E' lat: 12.3 PA mean PG : 111.5 cm/sec E/e' average: 14.7 Pulm A Revs Dur PA Accel Time ALMITA(I,D): 2.8 cm : 0.11 sec sev ratio MV A dur: 0.13 sec MV dec time MV P1/2t max mandeep Ao V2 mean LV V1 max PG : 0.18 sec : 127.7 cm/sec MVA(P1/2t): 4.1 cm2 Ao V2 VTI: 36.8 cm LV V1 VTI ALMITA(V,D): 2.1 cm2 : 25.6 cm PA V2 mean ALMITA indexed to BSA Pulm A Revs Dur - MV A : 67.8 cm/sec (cm^2/m^2): 1.4 Dur: -0.00 msec Reading Physician:11:20 AM ADDENDUM Version 2 [facility] [address] 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 He was found to have bilateral pulmonary embolism on the CT angio and thus was admitted. 1. Acute, unprovoked bilateral pulmonary embolism, present on admission, active. - Patient presented with dyspnea and productive cough. Currently hemodynamically stable, thus no indication for thrombolytic therapy. - Elevated D-Dimer (5.9) and PE was confirmed with CT angio. - Respiratory support with supplemental oxygen as needed for SpO2>90%. - Continue Heparin gtt. Consider starting anticoagulation such as Warfarin. - Check Echo in the AM. No Echo on our record. - UA positive for bacteria and WBC. Urine culture pending. No other sign of infection, thus will hold off on starting antibiotics. - Continue to monitor vital signs. - Encourage ambulation. -Loose stool a day we will check stool PCR and guaiac stools -We will check a.m. CBC platelets differential, CMP 2-D echocardiogram reveals mild heart strain. The patient has been on unfractionated heparin drip for 2 days. I believe he is a reasonable candidate for Apixiban (Eliquis). We will duplex ultrasound his legs today to rule out a massive clot burden. Assuming that this is reasonable he likely can have his heparin stopped tomorrow and be sent out with a apixaban 10 mg twice a day for 7 days and then 5 mg twice a day for 3-6 months. I will get social work Prescriptions today and have these run through his insurance for preauthorization. 2. Intermittent asthma, chronic, stable. - Resume Albuterol inhaler PRN The patient is coughing up green sputum. We will continue to follow clinically. 3. Remote history of esophageal adenocarcinoma, presumed stable. - Need to follow up as outpatient to determine if 4. Hypertension, chronic, stable. - Continue home Atenolol after medication reconciliation. (Atenolol listed in the allergy list but patient states he might take Atenolol). - Continue to monitor. 5. Hyperlipidemia, chronic, stable. - Resume home Lovastatin 20mg HS 6. Enlarged prostate, chronic, presume stable. - Continue Tamsulosin. 7. CODE STATUS: FULL per the patient. Patient is admitted under inpatient status with expected length of stay greater than 2 midnights due to severity of presenting symptoms, risk of adverse event, and complexity of treatment plan. Probable discharge tomorrow, May 12 on Apixiban GI Prophylaxis: H2 heriberto VTE Prophylaxis: Other (heparin ggt) VTE Mechanical Devices: Intermittant Pneumatic CD Resuscitation Status: CPR: Attempt Resuscitation Time spent 30 minutes Charo Monge MD May 11, 2016 16:32
--- NOTE | 2016-05-11 18:41 | NUR ---
Loose stool Pt had loose, yellow/brown stool X2 today, spoke with and orders placed for stool PCR, stool/guaiac samples sent to lab. Pt denied bloating/nausea. Addendum: 05/11/16 at 1844 by CHRISTINE MURRAY RN Pt's C-diff sample came back as negative.
[2016-05-12] VITALS (12 sets, daily range): BP systolic 93–136; BP diastolic 61–86; PULSE 62–79; RESP 12–24; O2SAT 92–94
[2016-05-12 04:05] LABS: BASOPHILS % (AUTO) 0.6 % (0-3); EOSINOPHILS % (AUTO) 3.6 % (0-5); MONOCYTES % (AUTO) 9.6 % (4-12); Mean Corpuscular Hemoglobin 31.9 pg (27.0-35.0); Mean Corpuscular Volume 95.5 fL (81-100); NEUTROPHILS % (AUTO) 62.3 % (40-74); Platelet Count 170 bil/L (150-400)
--- NOTE | 2016-05-12 05:10 | NUR ---
stool pt had bloody liquid stool this morning about 50cc, sent for guiacc, pt on a heparin gtt, PTT this morning in goal range and H/H WINL, called received order to continue heparin gtt for now, pt with bilat PEs and DVT.
[2016-05-12] MEDS: Fluticasone 0.05% 15 Spray/2 Gm 16 Gm Nasal Spray NASAL SCH ×2 (07:55→21:09)
[2016-05-12] MEDS: Heparin 25K Unit/500mL 0.45 NS 25,000 UNIT in IV Premix 1 EACH IV SCH (09:23)
[2016-05-12] MEDS: Albuterol 2.5 mg/3 mL Inhalation Solution NEB PRN ×2 (09:40→20:18)
--- NOTE | 2016-05-12 11:32 | PCM.PNMED ---
Subjective Date of Service May 12, 2016 Subjective Patient did have some blood with looser stool today. He denies any abdominal pain. He tells me he had a colonoscopy earlier in April which did reveal some polyps. Exam Vital Signs Vital Sign - Last Date Time Temp Pulse Resp B/P Pulse Ox O2 Delivery O2 Flow Rate FiO2 05/12/16 09:41 79 18 94 Room Air 05/12/16 07:52 36.6 115/80 Intake and Output 05/11/16 05/11/16 05/12/16 Cumulative From/Thru 15:00 23:00 07:00 05/09/16 01:55 - 05/12/16 06:12 Intake Total 342 ml 1039 ml 877 ml 6229 ml Output Total 500 ml 800 ml 1302 ml Balance 342 ml 539 ml 77 ml 4927 ml Intake Oral 760 ml 540 ml 3620 ml IV Total 342 ml 279 ml 337 ml 2609 ml Output Urine Total 500 ml 800 ml 1302 ml # Voids 9 # Bowel Movements 2 1 4 Exam Constitutional: Elderly male in no acute distress Head: Normocephalic atraumatic Eyes: PERRLA DC EOMI Chest: Clear to auscultation Cor: Regular rate and rhythm S1-S2 Abdomen: Soft nontender bowel sounds present Extremities: No pedal edema Neuro: Alert and oriented 3, motor strength is intact bilaterally Lab and Diagnostics Laboratory Tests 72 Hours Test 05/09/16 15:50 05/09/16 22:17 05/10/16 03:25 05/10/16 10:08 Activated Partial Thromboplast Time 136.1sec (22.8-33.0) 75.9sec (22.8-33.0) 84.6sec (22.8-33.0) 78.1sec (22.8-33.0) Test 05/11/16 03:35 05/12/16 03:45 Activated Partial Thromboplast Time 67.9sec (22.8-33.0) 64.6sec (22.8-33.0) White Blood Count 8.1th/mm3 (3.8-10.1) Red Blood Count 4.48mil/mm3 (4.40-5.80) Hemoglobin 14.3g/dL (13.8-17.2) Hematocrit 42.8% (41.0-50.0) Mean Corpuscular Volume 95.5fL (81-100) Mean Corpuscular Hemoglobin 31.9pg (27.0-35.0) Mean Corpuscular Hemoglobin Concent 33.4% (32.0-37.0) Red Cell Distribution Width 13.0% (12.3-15.4) Platelet Count 170bil/L (150-400) Neutrophils (%) (Auto) 62.3% (40-74) Lymphocytes (%) (Auto) 23.7% (14-46) Monocytes (%) (Auto) 9.6% (4-12) Eosinophils (%) (Auto) 3.6% (0-5) Basophils (%) (Auto) 0.6% (0-3) Sodium Level 139mEq/L (134-144) Potassium Level 4.0mEq/L (3.5-5.2) Chloride Level 102mEq/L (97-108) Carbon Dioxide Level 25mmol/L (18-29) Blood Urea Nitrogen 15mg/dL (8-27) Creatinine 0.87mg/dL (0.76-1.27) Estimat Glomerular Filtration Rate 90mL/min (>59) Glucose Level 103mg/dL (60-99) Calcium Level 9.0mg/dL (8.5-10.1) Total Bilirubin 0.5mg/dL (0.0-1.2) Aspartate Amino Transf (AST/SGOT) 21U/L (0-50) Alanine Aminotransferase (ALT/SGPT) 19U/L (0-44) Alkaline Phosphatase 92U/L (25-160) Total Protein 6.2g/dL (6.4-8.4) Albumin 3.5g/dL (3.4-5.0) Result Diagram: 05/12/1634405/12/16344 12-lead ECG Sinus rate (74) and rhythm with no acute ischemic changes. Cardiac Echo Impressions Patient Name: BRYON MADRID MR#: [id number] Location: [facility] Ordering Phys: Lito Alston DO Date of Service: 05/09/16 [address] [place] [address] Echocardiogram Report Name: BRYON MADRID LStudy Date: 05/09/2016 Height: 68 in Hospital Exam Location: [facility] Weight: 18 8 lb Gender: Male BSA: 2.0 m2 : 1935 Age: 81 yrs BP: 124/86 mmHg Reason For Study: Pulmonary- Embolism Ordering Physician: HOSPITALIST [facility] Performed By: Bekah Fernando Referring Physician: Dr. Alexy Machado Interpretation Summary Technically difficult study limit valve visualization. 1) Normal left ventricular thickness, size, wall motion, and systolic function (EF 60-65%). 2) Proximal septal thickening present, but no left ventricular outflow gradient present. 3) Normal right ventricular size and function. 4) Grade 2 diastolic dysfunction present consistent with elevated filling pressures. 5) Age related calcification of the aortic valve but no significant stenosis or regurgitation present. 6) Mild pulmonary hypertension present, estimated systolic pulmonary pressure of 38mmHg. 7) No prior Echo available for comparison. Procedure: A two-dimensional transthoracic echocardiogram with color flow and Doppler was performed. There is no prior echocardiogram noted for this patient. The study quality was technically adequate. The patient was in normal sinus rhythm during the exam. Left Ventricle: The left ventricle is normal in size. Proximal septal thickening is noted. The ejection fraction is estimated to be 60-65%. The left ventricular ejection fraction is normal. There are no obvious focal wall motion abnormalities noted but poor endocardial definition reduces the sensitivity for the detection of such. Assessment of diastolic parameters suggests a pseudonormalization pattern, consistent with elevated filling pressures. Right Ventricle: The right ventricle is at the upper limits of normal in size. The right ventricular systolic function is normal. Atria: The left atrium is severely dilated. Right atrial size is normal. There is no Doppler evidence for an interatrial shunt. Mitral Valve: There is mild mitral annular calcification. The mitral valve leaflets are mildly calcified. There is trace mitral regurgitation. Aortic Valve: The aortic valve is mildly calcified. Leaflet mobility is mildly reduced. The aortic valve is not well visualized. The peak aortic velocity is 2.1 m/sec. The calculated aortic valve area is 2.8 cm2. The aortic valve mean gradient is 7.8 mmHg. There is no aortic valve stenosis. There is trace aortic regurgitation. Tricuspid Valve: The tricuspid valve is normal in structure and function. There is a trace or physiologic amount of tricuspid regurgitation. The right ventricular systolic pressure is estimated at 38 mmHg assuming a right atrial pressure of 8 mm Hg. Pulmonic Valve: The pulmonic valve is not well seen, but is grossly normal. There is no pulmonic valvular regurgitation. Great Vessels: The aortic root is normal size. The ascending aorta is mildly enlarged. The aortic arch is at the upper limits of normal in size. The pulmonary artery is normal size. The IVC is of normal diameter and collapses less than 50% with a sniff. This suggests a right atrial pressure of 8 mm Hg. Pericardium/ Pleura There is no pericardial effusion. MMode/2D Measurements & Calculations LVIDd: 4.5 cm RA long axis LVOT diam: 2.2 cm LVIDs: 2.6 cm LA A2 area: 27.1 cm AoV Opening FS: 43.1 % LA A4 area: 31.8 cm RA area EPSS: 0.74 cm LA length (vol) Ao root diam IVSd: 1.3 cm : 18.9 cm LVPWd: 0.83 cm LA vol: 106.4 ml RA vol Aortic Jxn: 3.2 cm LA vol index : 48.3 ml asc Aorta Diam RA : 24.2 mm2 Ao Arch Diam (Prox IVC diam: 1.9 cm Trans): 3.2 cm LV cook. diameter/BSA LV sys. diameter/BSA RVD1 (basal) TAPSE: 2.4 cm (cm/m^2): 2.3 (cm/m^2): 1.3 Doppler Measurements & Calculations Ao V2 max MV E max mandeep MV E/A: 0.65 TR max mandeep : 208.2 cm/sec : 89.7 cm/sec Med Peak E' Mandeep : 273.3 cm/sec Ao max PG MV A max mandeep TR max PG : 17.3 mmHg : 137.6 cm/sec E/E' med: 17.0 : 29.9 mmHg Ao mean PG MV P1/2t: 54.0 msec Lat Peak E' Mandeep PA V2 max : 105.8 cm/sec LVOT Max Mandeep E/E' lat: 12.3 PA mean PG : 111.5 cm/sec E/e' average: 14.7 Pulm A Revs Dur PA Accel Time ALMITA(I,D): 2.8 cm : 0.11 sec sev ratio MV A dur: 0.13 sec MV dec time MV P1/2t max mandeep Ao V2 mean LV V1 max PG : 0.18 sec : 127.7 cm/sec MVA(P1/2t): 4.1 cm2 Ao V2 VTI: 36.8 cm LV V1 VTI ALMITA(V,D): 2.1 cm2 : 25.6 cm PA V2 mean ALMITA indexed to BSA Pulm A Revs Dur - MV A : 67.8 cm/sec (cm^2/m^2): 1.4 Dur: -0.00 msec Reading Physician:11:20 AM ADDENDUM Version 2 [facility] [address] Assessment & Plan 81 year old [id number] male with a history of asthma, hypertension, and 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 He was found to have bilateral pulmonary embolism on the CT angio and thus was admitted. 1. Acute, unprovoked bilateral pulmonary embolism, present on admission, active. - Patient presented with dyspnea and productive cough. Currently hemodynamically stable, thus no indication for thrombolytic therapy. - Elevated D-Dimer (5.9) and PE was confirmed with CT angio. - Respiratory support with supplemental oxygen as needed for SpO2>90%. - Continue Heparin gtt. Consider starting anticoagulation such as Warfarin. - Check Echo in the AM. No Echo on our record. - UA positive for bacteria and WBC. Urine culture pending. No other sign of infection, thus will hold off on starting antibiotics. - Continue to monitor vital signs. - Encourage ambulation. -Loose stool a day we will check stool PCR and guaiac stools -We will check a.m. CBC platelets differential, CMP 2-D echocardiogram reveals mild heart strain. The patient has been on unfractionated heparin drip for 2 days. I believe he is a reasonable candidate for Apixiban (Eliquis). We will duplex ultrasound his legs today to rule out a massive clot burden. Assuming that this is reasonable he likely can have his heparin stopped tomorrow and be sent out with a apixaban 10 mg twice a day for 7 days and then 5 mg twice a day for 3-6 months. I will get social work Prescriptions today and have these run through his insurance for preauthorization. # Lower GI bleed, acute, not present on admission -Over the past 2 days he has been having alteration in bowel movements with blood noted -Check serial hematocrits every 12 hours -Gastroenterology Dr. Cheatham notified regarding this consultation and I will make patient nothing by mouth in case scope happens today. 2. Intermittent asthma, chronic, stable. - Resume Albuterol inhaler PRN The patient is coughing up green sputum. We will continue to follow clinically. 3. Remote history of esophageal adenocarcinoma, presumed stable. - Need to follow up as outpatient to determine if 4. Hypertension, chronic, stable. - Continue home Atenolol after medication reconciliation. (Atenolol listed in the allergy list but patient states he might take Atenolol). - Continue to monitor. 5. Hyperlipidemia, chronic, stable. - Resume home Lovastatin 20mg HS 6. Enlarged prostate, chronic, presume stable. - Continue Tamsulosin. 7. CODE STATUS: FULL per the patient. Patient is admitted under inpatient status with expected length of stay greater than 2 midnights due to severity of presenting symptoms, risk of adverse event, and complexity of treatment plan. Probable discharge tomorrow, May 12 on Apixiban GI Prophylaxis: H2 heriberto VTE Prophylaxis: Other (heparin ggt) VTE Mechanical Devices: Intermittant Pneumatic CD Resuscitation Status: CPR: Attempt Resuscitation Time spent 30 minutes Charo Monge MD May 12, 2016 11:32
--- NOTE | 2016-05-12 15:40 | PCM.CHPMED ---
Subjective Date of Service: May 12, 2016 Provider requesting consult: Charo Monge MD Primary Physician: Admitting Physician: Meggan Webb DO Primary Care Physician: Alexy Machado MD Attending Physician: Meggan Webb DO Chief Complaint: Chief Complaint: REASON FOR GI CONSULT: BRBPR, blood noted with stool History of Present Illness: GASTROENTEROLOGY CONSULT NOTE Mr. 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 Stat imaging in the ED revealed bilateral PE. Heparin gtt was initiated. Over the recent 24 hours, patient has developed bright red blood within his stools, most recently approx 50cc. GI was asked to consult to assist in care and evaluation. Mr. Webb states that prior to current events, he was feeling quite well, with no complaints of fever, chills, nausea, vomiting, abnormal bowel habits, diarrhea, constipation, shortness of breath. His esophageal procedure was completed in 2001. States minimal to zero difficulty since, and denies dysphagia or recurrence of symptoms. Currently states that he is very hungry. Denies any known family history of known GI issues, and does not recall any other personal history at time of examination other than his esophageal cancer and colon polyps. Denies tobacco and chronic or daily alcohol use. Regularly receives colonoscopies by Dr. Schuler, most recently 04/28/2016, and is due for next EGD in 2018, previous 12/2012. Recent colonoscopy completed 10/[address] Chirag Schuler: Poor prep secondary to diverticulosis ten polyps seen s/p snare and hot forceps removal, all approx 5mm in diameter. Biopsies obtained revealed tubular adenomas and hyperplastic polyps. Currently, denies any bowel urgency, nausea, vomiting, shortness of breath, fever, chills. HH has remained stable on heparin therapy. Review of Systems: Complete ROS obtained; pertinent positives and negatives as noted in HPI PMH Past Medical History Esophageal adenocarcinoma s/p esophagogastrectomy (Intramucosal adenocarcinoma of the distal esophagus in 2001 - Polypoid mixed tubular and villiform adenomas) Asthma HTN Squamous cell carcinoma GERD Gross hematuria Diverticulosis Carotid artery disease Surgical History Cholecystectomy- 1983 Bilateral cataracts Right knee Esophagogastrectomy- 2001 Tonsillectomy- 194 SCC excisions Home Medications Obtained from admission note: Albuterol HFA (Proair HFA) 8.5 Gm Hfa.aer.ad 2 PUFFS INHALATION Q4H Ascorbate Calcium (Vitamin C) 500 Mg Tablet 500 MG PO DAILY Aspirin (Aspirin) 81 Mg Tablet 81 MG PO DAILY Atenolol (Atenolol) 50 Mg Tablet 50 MG PO DAILY Cetirizine (Cetirizine) 5 Mg Tablet 10 MG PO DAILY Cholecalciferol (Vitamin D3) (Vitamin D3) 1,000 Unit Tab.chew 1,000 UNIT PO DAILY Fluticasone Propionate (Fluticasone Propionate Nasal) 16 Gm Bigelow.susp 1 SPRAY NS BID Fluticasone Propionate (Flovent HFA 110 mcg) 12 Gm Aer.w.adap 1 PUFF IH BID Lovastatin (Lovastatin) 20 Mg Tablet 20 MG PO HS Multivitamin (Multi Vitamin Daily) 1 Each Tablet 1 EACH PO DAILY Omeprazole (Omeprazole) 20 Mg Capsule.dr 20 MG PO BID Tamsulosin ER (Tamsulosin ER) 0.4 Mg Cap.er.24h 0.4 MG PO DAILY Scheduled PRN Albuterol Neb Soln (Albuterol Neb Soln) 2.5 Mg/3 Ml Vial.neb 2.5 MG INHALATION Q4H PRN PRN For Shortness of Breath Allergies: Coded Allergies: Penicillins (Verified Allergy, Severe, 09/16/15) acetaminophen (Verified Allergy, Severe, 09/16/15) celecoxib (Verified Allergy, Severe, 09/16/15) ibuprofen (Verified Allergy, Severe, 09/16/15) metoclopramide (Verified Allergy, Severe, stomach pains, 09/16/15) propranolol (Verified Allergy, Severe, 09/16/15) pseudoephedrine (Verified Allergy, Severe, 09/16/15) pseudoephedrine HCl (Verified Allergy, Severe, "makes heart skip", 09/16/15 ) sildenafil citrate (Verified Allergy, Severe, "almost killed me", 09/16/15) sulfamethoxazole (Verified Allergy, Severe, 09/16/15) tetracycline (Verified Allergy, Severe, 09/16/15) atenolol (Verified Allergy, Unknown, 09/16/15) clindamycin (Verified Allergy, Unknown, 09/16/15) erythromycin ethylsuccinate (Verified Allergy, Unknown, UNKNOWN, 09/16/15) hydrochlorothiazide (Verified Allergy, Unknown, 09/16/15) levofloxacin (Verified Allergy, Unknown, 09/16/15) trimethoprim (Verified Allergy, Unknown, 09/16/15) Family History Family History Father: Unknown; of 'natural causes' Mother: Alzheimer Other members: Diabetes Unknown of any GI disorders such as IBD, Celiac, other GI CA other than his personal history Social History Hx Alcohol Use: Yes (2 ounces wine)Hx Substance Use: NoHx Tobacco Use: No Smoking Status: Never Smoker Living Arrangement: with Family Exam Vital Signs Vital Sign - Last Date Time Temp Pulse Resp B/P Pulse Ox O2 Delivery O2 Flow Rate FiO2 05/12/16 11:59 36.6 72 16 93/61 94 Room Air Intake and Output 05/11/16 05/11/16 05/12/16 Cumulative From/Thru 15:00 23:00 07:00 05/09/16 01:55 - 05/12/16 06:12 Intake Total 342 ml 1039 ml 877 ml 6229 ml Output Total 500 ml 800 ml 1302 ml Balance 342 ml 539 ml 77 ml 4927 ml Intake Oral 760 ml 540 ml 3620 ml IV Total 342 ml 279 ml 337 ml 2609 ml Output Urine Total 500 ml 800 ml 1302 ml # Voids 9 # Bowel Movements 2 1 4 General: Alert, Oriented X3, Cooperative, No Acute Distress Head: Facial Expression & Appearance (symmetric) Eyes: EOMI, Scleral Anicteric Nose: Mucous Membr Moist/[place] Mouth: Mucous Membr Moist/[place] Chest & Lungs: Auscultation (clear bilaterally) Cardiovascular: Regular Rate/Rhythm, No Murmurs/Rubs/Gallops Abdomen: Non-tender, Non-distended, Normoactive bowel tones, Soft Musculoskeletal: Normal Range of Motion (able to ambulate without assistance) Extremities: No cyanosis/clubbing/edma bilat Neurological: Grossly Neurologically Intact, Normal Speech (without slur) Lab and Diagnostics Result Diagram: 05/12/16 1345 05/12/16 2035 Assessment & Plan Assessment GASTROENTEROLOGY CONSULT NOTE Mr. 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 Stat imaging in the ED revealed bilateral PE. Heparin gtt was initiated. Over the recent 24 hours, patient has developed bright red blood within his stools, most recently approx 50cc. GI was asked to consult to assist in care and evaluation. Assessments - BRBPR in patient receiving anticoagulation therapy for bilateral PE - Likely secondary to the therapeutic values of anticoagulation. This is necessary to prevent new clot formation and allow the body to resorb current pulmonary clots Recs - Colonoscopy; defer decision to primary team at this time - Patient wishes to have colonoscopy performed by Dr. Chirag Schuler, as Dr. Schuler has been following up with this gentleman for many years. Patient is requesting that if a procedure needs to be completed, to please contact Dr. Schuler - Continue to monitor stool output - Continue to monitor HH HH levels have been stable, no need for urgent colonoscopy at this time. Continue heparin per protocol. Patient can follow up outpatient with Dr. Schuler for colonoscopy scheduling, or inpatient if deemed necessary. If a significant decrease in HH is noted, please do not hesitate to contact our team for urgent/emergent endoscopy, but at this time, we will sign off. Thank you. Total time: 60 minutes Problems: Pain Evaluation: Adequate Pain Control GI Prophylaxis: H2 heriberto VTE Prophylaxis: Other (heparin ggt) VTE Mechanical Devices: Intermittant Pneumatic CD Resuscitation Status: CPR: Attempt Resuscitation Edelmira Mari DO May 12, 2016 15:40
--- NOTE | 2016-05-12 17:59 | NUR ---
Bloody stool Pt had one more small steffany blood stool this am, hospitalist notified who spoke with GI, GI came and assessed Pt, no new orders at that time, heparin gtt continued.
[2016-05-13] VITALS (8 sets, daily range): BP systolic 102–139; BP diastolic 60–87; PULSE 62–81; RESP 16–20; O2SAT 94–98
[2016-05-13] MEDS: Heparin 25K Unit/500mL 0.45 NS 25,000 UNIT in IV Premix 1 EACH IV SCH ×2 (04:14→21:10)
--- NOTE | 2016-05-13 05:46 | NUR ---
no more stool pt with no more stools this shift, heparin gtt running at 16units/kg/hr, pt denies any pain
[2016-05-13] MEDS: Fluticasone 0.05% 15 Spray/2 Gm 16 Gm Nasal Spray NASAL SCH ×2 (09:02→19:45)
--- NOTE | 2016-05-13 11:05 | NUR ---
Social Work: Continued Discharge Planning D: Per MD request, prescription for Eliquis was provided to determine pts copay. REBEAMER faxed to [facility] in [place], pt's preferred pharmacy. REBEAMER spoke with pharmacist who states pt's insurance would require a pre-authorization before a co-pay amount could be determined. REBEAMER updated MD. A: Pt who is I at baseline P: Anticipate pt to discharge home when medically stable; REBEAMER to continue to follow MADISON Delarosa
--- NOTE | 2016-05-13 12:56 | PCM.PNMED ---
Subjective Date of Service May 13, 2016 Subjective Patient is walking around the room and has no current complaints. Denies any lightheaded shortness of breath or chest pain. Exam Vital Signs Vital Sign - Last Date Time Temp Pulse Resp B/P Pulse Ox O2 Delivery O2 Flow Rate FiO2 05/13/16 12:17 36.4 74 20 125/60 94 Room Air Intake and Output 05/12/16 05/12/16 05/13/16 Cumulative From/Thru 15:00 23:00 07:00 05/09/16 01:55 - 05/13/16 06:18 Intake Total 1047 ml 692 ml 7968 ml Output Total 300 ml 700 ml 2302 ml Balance 747 ml -8 ml 5666 ml Intake Oral 730 ml 370 ml 4720 ml IV Total 317 ml 322 ml 3248 ml Output Urine Total 300 ml 700 ml 2302 ml # Voids 2 11 # Bowel Movements 1 5 Exam Constitutional: Elderly man who appears in no acute distress Head: Normocephalic atraumatic Chest: Clear to auscultation Cor: Regular rate and rhythm S1-S2 Abdomen: Soft nontender bowel sounds positive no tenderness to palpation Extremities: Trace bilateral pedal edema Neuro: Alert and oriented 3, motor strength is intact bilaterally Lab and Diagnostics Laboratory Tests 72 Hours Test 05/11/16 03:35 05/12/16 03:45 05/12/16 13:45 05/13/16 01:25 Activated Partial Thromboplast Time 67.9sec (22.8-33.0) 64.6sec (22.8-33.0) White Blood Count 8.1th/mm3 (3.8-10.1) Red Blood Count 4.48mil/mm3 (4.40-5.80) Hemoglobin 14.3g/dL (13.8-17.2) 14.4g/dL (13.8-17.2) 14.2g/dL (13.8-17.2) Hematocrit 42.8% (41.0-50.0) 43.7% (41.0-50.0) 43.5% (41.0-50.0) Mean Corpuscular Volume 95.5fL (81-100) Mean Corpuscular Hemoglobin 31.9pg (27.0-35.0) Mean Corpuscular Hemoglobin Concent 33.4% (32.0-37.0) Red Cell Distribution Width 13.0% (12.3-15.4) Platelet Count 170bil/L (150-400) Neutrophils (%) (Auto) 62.3% (40-74) Lymphocytes (%) (Auto) 23.7% (14-46) Monocytes (%) (Auto) 9.6% (4-12) Eosinophils (%) (Auto) 3.6% (0-5) Basophils (%) (Auto) 0.6% (0-3) Sodium Level 139mEq/L (134-144) Potassium Level 4.0mEq/L (3.5-5.2) Chloride Level 102mEq/L (97-108) Carbon Dioxide Level 25mmol/L (18-29) Blood Urea Nitrogen 15mg/dL (8-27) Creatinine 0.87mg/dL (0.76-1.27) Estimat Glomerular Filtration Rate 90mL/min (>59) Glucose Level 103mg/dL (60-99) Calcium Level 9.0mg/dL (8.5-10.1) Total Bilirubin 0.5mg/dL (0.0-1.2) Aspartate Amino Transf (AST/SGOT) 21U/L (0-50) Alanine Aminotransferase (ALT/SGPT) 19U/L (0-44) Alkaline Phosphatase 92U/L (25-160) Total Protein 6.2g/dL (6.4-8.4) Albumin 3.5g/dL (3.4-5.0) Test 05/13/16 05:04 Activated Partial Thromboplast Time 68.1sec (22.8-33.0) Result Diagram: 05/13/16 0125 05/12/16 0345 12-lead ECG Sinus rate (74) and rhythm with no acute ischemic changes. Cardiac Echo Impressions Patient Name: BRYON MADRID MR#: [id number] Location: [facility] Ordering Phys: Lito Alston DO Date of Service: 05/09/16 [address] [place] [address] Echocardiogram Report Name: BRYON MADRID LStudy Date: 05/09/2016 Height: 68 in Hospital Exam Location: [facility] Weight: 18 8 lb Gender: Male BSA: 2.0 m2 : 1935 Age: 81 yrs BP: 124/86 mmHg Reason For Study: Pulmonary- Embolism Ordering Physician: HOSPITALIST [facility] Performed By: Bekah Fernando Referring Physician: Dr. Alexy Machado Interpretation Summary Technically difficult study limit valve visualization. 1) Normal left ventricular thickness, size, wall motion, and systolic function (EF 60-65%). 2) Proximal septal thickening present, but no left ventricular outflow gradient present. 3) Normal right ventricular size and function. 4) Grade 2 diastolic dysfunction present consistent with elevated filling pressures. 5) Age related calcification of the aortic valve but no significant stenosis or regurgitation present. 6) Mild pulmonary hypertension present, estimated systolic pulmonary pressure of 38mmHg. 7) No prior Echo available for comparison. Procedure: A two-dimensional transthoracic echocardiogram with color flow and Doppler was performed. There is no prior echocardiogram noted for this patient. The study quality was technically adequate. The patient was in normal sinus rhythm during the exam. Left Ventricle: The left ventricle is normal in size. Proximal septal thickening is noted. The ejection fraction is estimated to be 60-65%. The left ventricular ejection fraction is normal. There are no obvious focal wall motion abnormalities noted but poor endocardial definition reduces the sensitivity for the detection of such. Assessment of diastolic parameters suggests a pseudonormalization pattern, consistent with elevated filling pressures. Right Ventricle: The right ventricle is at the upper limits of normal in size. The right ventricular systolic function is normal. Atria: The left atrium is severely dilated. Right atrial size is normal. There is no Doppler evidence for an interatrial shunt. Mitral Valve: There is mild mitral annular calcification. The mitral valve leaflets are mildly calcified. There is trace mitral regurgitation. Aortic Valve: The aortic valve is mildly calcified. Leaflet mobility is mildly reduced. The aortic valve is not well visualized. The peak aortic velocity is 2.1 m/sec. The calculated aortic valve area is 2.8 cm2. The aortic valve mean gradient is 7.8 mmHg. There is no aortic valve stenosis. There is trace aortic regurgitation. Tricuspid Valve: The tricuspid valve is normal in structure and function. There is a trace or physiologic amount of tricuspid regurgitation. The right ventricular systolic pressure is estimated at 38 mmHg assuming a right atrial pressure of 8 mm Hg. Pulmonic Valve: The pulmonic valve is not well seen, but is grossly normal. There is no pulmonic valvular regurgitation. Great Vessels: The aortic root is normal size. The ascending aorta is mildly enlarged. The aortic arch is at the upper limits of normal in size. The pulmonary artery is normal size. The IVC is of normal diameter and collapses less than 50% with a sniff. This suggests a right atrial pressure of 8 mm Hg. Pericardium/ Pleura There is no pericardial effusion. MMode/2D Measurements & Calculations LVIDd: 4.5 cm RA long axis LVOT diam: 2.2 cm LVIDs: 2.6 cm LA A2 area: 27.1 cm AoV Opening FS: 43.1 % LA A4 area: 31.8 cm RA area EPSS: 0.74 cm LA length (vol) Ao root diam IVSd: 1.3 cm : 18.9 cm LVPWd: 0.83 cm LA vol: 106.4 ml RA vol Aortic Jxn: 3.2 cm LA vol index : 48.3 ml asc Aorta Diam RA : 24.2 mm2 Ao Arch Diam (Prox IVC diam: 1.9 cm Trans): 3.2 cm LV cook. diameter/BSA LV sys. diameter/BSA RVD1 (basal) TAPSE: 2.4 cm (cm/m^2): 2.3 (cm/m^2): 1.3 Doppler Measurements & Calculations Ao V2 max MV E max mandeep MV E/A: 0.65 TR max mandeep : 208.2 cm/sec : 89.7 cm/sec Med Peak E' Mandeep : 273.3 cm/sec Ao max PG MV A max mandeep TR max PG : 17.3 mmHg : 137.6 cm/sec E/E' med: 17.0 : 29.9 mmHg Ao mean PG MV P1/2t: 54.0 msec Lat Peak E' Mandeep PA V2 max : 105.8 cm/sec LVOT Max Mandeep E/E' lat: 12.3 PA mean PG : 111.5 cm/sec E/e' average: 14.7 Pulm A Revs Dur PA Accel Time ALMITA(I,D): 2.8 cm : 0.11 sec sev ratio MV A dur: 0.13 sec MV dec time MV P1/2t max mandeep Ao V2 mean LV V1 max PG : 0.18 sec : 127.7 cm/sec MVA(P1/2t): 4.1 cm2 Ao V2 VTI: 36.8 cm LV V1 VTI ALMITA(V,D): 2.1 cm2 : 25.6 cm PA V2 mean ALMITA indexed to BSA Pulm A Revs Dur - MV A : 67.8 cm/sec (cm^2/m^2): 1.4 Dur: -0.00 msec Reading Physician:11:20 AM ADDENDUM Version 2 [facility] [address] . Assessment & Plan 81 year old [id number]-bprttyi male with a history of asthma, hypertension, and 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 He was found to have bilateral pulmonary embolism on the CT angio and thus was admitted. 1. Acute, unprovoked bilateral pulmonary embolism, present on admission, active. - Patient presented with dyspnea and productive cough. Currently hemodynamically stable, thus no indication for thrombolytic therapy. - Elevated D-Dimer (5.9) and PE was confirmed with CT angio. - Respiratory support with supplemental oxygen as needed for SpO2>90%. - Continue Heparin gtt. Consider starting anticoagulation such as Warfarin. - Check Echo in the AM. No Echo on our record. - UA positive for bacteria and WBC. Urine culture pending. No other sign of infection, thus will hold off on starting antibiotics. - Continue to monitor vital signs. - Encourage ambulation. -Loose stool a day we will check stool PCR and guaiac stools -We will check a.m. CBC platelets differential, CMP -His labs are stable today. -Continue with IV heparin drip and will initiate Coumadin therapy as GI thinks he stable to be discharged to home but given the fact he needs a reversible and inexpensive option for anticoagulation will go ahead and initiate Coumadin therapy. 2-D echocardiogram reveals mild heart strain. The patient has been on unfractionated heparin drip for 2 days. I believe he is a reasonable candidate for Apixiban (Eliquis). We will duplex ultrasound his legs today to rule out a massive clot burden. Assuming that this is reasonable he likely can have his heparin stopped tomorrow and be sent out with a apixaban 10 mg twice a day for 7 days and then 5 mg twice a day for 3-6 months. I will get social work Prescriptions today and have these run through his insurance for preauthorization. # Lower GI bleed, acute, not present on admission -Over the past 2 days he has been having alteration in bowel movements with blood noted -Check serial hematocrits every 12 hours -Gastroenterology Dr. Cheatham notified regarding this consultation and I will make patient nothing by mouth in case scope happens today. -Gastroenterology feels that the patient is stable and can have further outpatient investigative studies done and hence we will go ahead and initiate Coumadin therapy and continue with IV heparin and discharge him after 2 days of being therapeutic INR. 2. Intermittent asthma, chronic, stable. - Resume Albuterol inhaler PRN The patient is coughing up green sputum. We will continue to follow clinically. 3. Remote history of esophageal adenocarcinoma, presumed stable. - Need to follow up as outpatient to determine if 4. Hypertension, chronic, stable. - Continue home Atenolol after medication reconciliation. (Atenolol listed in the allergy list but patient states he might take Atenolol). - Continue to monitor. 5. Hyperlipidemia, chronic, stable. - Resume home Lovastatin 20mg HS 6. Enlarged prostate, chronic, presume stable. - Continue Tamsulosin. 7. CODE STATUS: FULL per the patient. Patient is admitted under inpatient status with expected length of stay greater than 2 midnights due to severity of presenting symptoms, risk of adverse event, and complexity of treatment plan. GI Prophylaxis: H2 heriberto VTE Prophylaxis: Other (heparin ggt) VTE Mechanical Devices: Intermittant Pneumatic CD Resuscitation Status: CPR: Attempt Resuscitation Time spent 30 minutes Charo Monge MD May 13, 2016 12:56
--- NOTE | 2016-05-13 13:13 | PCM.PHAPRO ---
Progress REASON FOR GI CONSULT: BRBPR, blood noted with stool WARFARIN DOSING Indication PE, unprovoked Concurrent anticoagulants IV Heparin day #5 Bleeding risks LGIB on admit, h/h stable (day) 1 [facility] Date INR (0.9) INR change Warf Dose 5 a/ Bleeding risk: LGIB, age >75 p/ Start with 5mg/d and follow Don Rosa D May 13, 2016 13:13
[2016-05-13 13:39] LABS: INR 1.05 ratio
[2016-05-13] MEDS: Albuterol 2.5 mg/3 mL Inhalation Solution NEB PRN (13:47)
--- NOTE | 2016-05-13 15:16 | NUR ---
Resp/activity/GI pt alert and oriented, very SALAMATOF. pt ambulating in room with steady gait and denies SOB. rare cough noted with small to moderate sputum. Heparin continues. Pt had one bowel movement this shift, soft brown with light red steffany blood streaks. Guaiac sent to lab. care continues.
[2016-05-14] VITALS (8 sets, daily range): BP systolic 93–118; BP diastolic 53–86; PULSE 61–83; RESP 16–20; O2SAT 95–97
--- NOTE | 2016-05-14 05:03 | NUR ---
Medications Pt AOx3, independent in room, RA. Tele SR 70s, VSS. Pt expressed confusion about current medication dosing, reported suspecting "high" dosage of Pepcid responsible for GIB; educated to medication regimen at HS.
[2016-05-14 05:21] LABS: BASOPHILS % (AUTO) 0.6 % (0-3); MONOCYTES % (AUTO) 12.1 % (4-12); Mean Corpuscular Hemoglobin 31.5 pg (27.0-35.0); Mean Corpuscular Volume 95.6 fL (81-100); NEUTROPHILS % (AUTO) 54.6 % (40-74); Platelet Count 156 bil/L (150-400)
[2016-05-14 05:55] LABS: INR 1.02 ratio
--- NOTE | 2016-05-14 09:20 | NUR ---
[facility] Signed
[2016-05-14] MEDS: Fluticasone 0.05% 15 Spray/2 Gm 16 Gm Nasal Spray NASAL SCH ×2 (09:35→19:35)
--- NOTE | 2016-05-14 10:47 | NUR ---
Social Work: Readiness for Discharge D: Pt discussed in am rounds. Pt is not medically stable for discharge and is starting on Coumadin. Pt will require 2 days of therapeutic INR prior to d/c. [employer] met with pt at bedside to discuss discharge planning and reassess for any unmet needs. Pt is hard of hearing but states that he has been ambulating I during admission. He states he does not use any DME and has no concerns about discharge home. He is eager to leave. Pt's confirms plan for discharge home. to transport. A: pt who is I at baseline. P: anticipate pt to discharge home via POV once medically stable; [employer] to continue to follow. MADISON Delarosa
[2016-05-14] MEDS: Albuterol 2.5 mg/3 mL Inhalation Solution NEB PRN (14:07)
--- NOTE | 2016-05-14 17:53 | PCM.PNMED ---
Subjective Date of Service May 14, 2016 Subjective -year-old man was history of resected esophageal adenocarcinoma presents with acute respiratory distress due to bilateral pulmonary emboli. States he feels generally well. He is worried about his anticoagulation therapy. No dyspnea today. Has been ambulating in [place]. He initiated warfarin on 04/15. Exam Vital Signs Vital Sign - Last Date Time Temp Pulse Resp B/P Pulse Ox O2 Delivery O2 Flow Rate FiO2 05/14/16 17:32 118/86 05/14/16 14:07 79 18 95 Room Air 05/14/16 12:02 36.9 Intake and Output 05/13/16 05/13/16 05/14/16 Cumulative From/Thru 15:00 23:00 07:00 05/09/16 01:55 - 05/14/16 06:07 Intake Total 839 ml 632 ml 9439 ml Output Total 2302 ml Balance 839 ml 632 ml 7137 ml Intake Oral 760 ml 300 ml 5780 ml IV Total 79 ml 332 ml 3659 ml Output Urine Total 2302 ml # Voids 2 2 15 # Bowel Movements 1 6 Exam General: Generally healthy-appearing elderly man no acute distress HEENT: sclerae anicteric, oral mucosa moist Neck: no JVD Chest: clear to auscultation Cardiac: S1S2, Abdomen: BS normal, non-tender Extremities: edema Neuro: A&O, cranial nerves symmetric, motor strength 5/5, coordination normal IVs and Medications Medications Reviewed: Medications were reviewed in detail Lab and Diagnostics Result Diagram: 05/14/16 1305 05/14/16 0455 12-lead ECG Sinus rate (74) and rhythm with no acute ischemic changes. Cardiac Echo Impressions Echocardiogram Report Name: BRYON MADRID LStudy Date: 05/09/2016 Interpretation Summary Technically difficult study limit valve visualization. 1) Normal left ventricular thickness, size, wall motion, and systolic function (EF 60-65%). 2) Proximal septal thickening present, but no left ventricular outflow gradient present. 3) Normal right ventricular size and function. 4) Grade 2 diastolic dysfunction present consistent with elevated filling pressures. 5) Age related calcification of the aortic valve but no significant stenosis or regurgitation present. 6) Mild pulmonary hypertension present, estimated systolic pulmonary pressure of 38mmHg. 7) No prior Echo available for comparison. . 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 He was found to have bilateral pulmonary embolism on the CT angio and thus was admitted. Acute and/or high-risk problems: #. Acute, unprovoked bilateral pulmonary embolism, present on admission, active. - Patient presented with dyspnea and productive cough. Currently hemodynamically stable, thus no indication for thrombolytic therapy.PE was confirmed with CT angio. - Respiratory support with supplemental oxygen as needed for SpO2>90%. - Continue Heparin gtt. - Continue Warfarin. - Encourage ambulation. # Lower GI bleed, acute, not present on admission -Over the past 2 days he has been having alteration in bowel movements with blood noted -Check serial hematocrits every 12 hours -Gastroenterology Dr. Cheatham notified regarding this consultation and I will make patient nothing by mouth in case scope happens today. -Gastroenterology feels that the patient is stable and can have further outpatient investigative studies done and hence we will go ahead and initiate Coumadin therapy and continue with IV heparin and discharge him after 2 days of being therapeutic INR. # Hematuria. Not present on admission. Noted on 05/14. Patient seems worried. -Check Hemoglobin; reassure patient if it is essentially unchanged -UA to rule out urine infection Stable, resolving, and/or chronic problems: #. Intermittent asthma, chronic, stable. He appears to have a chronic productive cough - Resume Albuterol inhaler PRN #. Remote history of esophageal adenocarcinoma, presumed stable. - Stable #. Hypertension, chronic, stable. - Continue home Atenolol after medication reconciliation. (Atenolol listed in the allergy list but patient states he might take Atenolol). - Continue to monitor. 5. Hyperlipidemia, chronic, stable. - Resume home Lovastatin 20mg HS 6. Enlarged prostate, chronic, presume stable. - Continue Tamsulosin. 7. CODE STATUS: FULL per the patient. Patient is admitted under inpatient status with expected length of stay greater than 2 midnights due to severity of presenting symptoms, risk of adverse event, and complexity of treatment plan. GI Prophylaxis: H2 heriberto VTE Prophylaxis: Other (heparin ggt) VTE Mechanical Devices: Intermittant Pneumatic CD Resuscitation Status: CPR: Attempt Resuscitation Time spent 35 minutes Max Wynn MD May 14, 2016 17:53
--- NOTE | 2016-05-14 18:03 | NUR ---
Hematuria pt c/o hematuria, made aware, new order for H&H and UA. ongoing care.
[2016-05-15] VITALS (12 sets, daily range): BP systolic 101–127; BP diastolic 63–87; PULSE 60–75; RESP 16–20; O2SAT 92–98
--- NOTE | 2016-05-15 05:06 | NUR ---
Hematuria Pt reported "bloody urine" at beginning of shift, saved sample for RN to observe. Upon assessment, urine appeared rosa - no steffany blood noted at that time. Pt AOx3, independent in room, RA, tele SR 80s; VSS. Able to rest throughout shift.
[2016-05-15 05:34] LABS: BASOPHILS % (AUTO) 0.3 % (0-3); EOSINOPHILS % (AUTO) 5.2 % (0-5); MONOCYTES % (AUTO) 10.7 % (4-12); Mean Corpuscular Hemoglobin 31.5 pg (27.0-35.0); Mean Corpuscular Volume 95.3 fL (81-100); Platelet Count 159 bil/L (150-400)
[2016-05-15 05:57] LABS: INR 1.04 ratio
[2016-05-15] MEDS: Fluticasone 0.05% 15 Spray/2 Gm 16 Gm Nasal Spray NASAL SCH ×2 (08:01→20:55)
[2016-05-15] MEDS: Albuterol 2.5 mg/3 mL Inhalation Solution NEB PRN ×2 (11:44→21:07)
[2016-05-15] MEDS: Heparin 25K Unit/500mL 0.45 NS 25,000 UNIT in IV Premix 1 EACH IV SCH (12:33)
--- NOTE | 2016-05-15 14:17 | PCM.PNMED ---
Subjective Date of Service May 15, 2016 Subjective 81-year-old man was history of resected esophageal adenocarcinoma presents with acute respiratory distress due to bilateral pulmonary emboli. States he feels generally well. He is worried about his anticoagulation therapy due to visible hematuria. No dyspnea today. Has been ambulating in [place]. He initiated warfarin on 04/15. Exam Vital Signs Vital Sign - Last Date Time Temp Pulse Resp B/P Pulse Ox O2 Delivery O2 Flow Rate FiO2 05/15/16 11:48 73 18 95 Room Air 05/15/16 11:06 36.3 101/66 Intake and Output 05/14/16 05/14/16 05/15/16 Cumulative From/Thru 15:00 23:00 07:00 05/09/16 01:55 - 05/15/16 06:29 Intake Total 1629 ml 650 ml 19581 ml Output Total 1650 ml 3952 ml Balance 1629 ml -1000 ml 7766 ml Intake Oral 1280 ml 350 ml 7410 ml IV Total 349 ml 300 ml 4308 ml Output Urine Total 1650 ml 3952 ml # Voids 3 18 # Bowel Movements 2 8 Exam General: Healthy-appearing talkative gentleman in no acute distress HEENT: sclerae anicteric, oral mucosa moist Neck: no JVD Chest: clear to auscultation Cardiac: S1S2, regular, no murmur Abdomen: BS normal, non-tender Extremities: No pedal edema Neuro: A&O, cranial nerves symmetric, motor strength 5/5, coordination normal IVs and Medications Medications Reviewed: Medications were reviewed in detail Lab and Diagnostics Result Diagram: 05/15/16 0500 05/15/16 0500 12-lead ECG Sinus rate (74) and rhythm with no acute ischemic changes. Cardiac Echo Impressions Echocardiogram Report Name: BRYON MADRID LStudy Date: 05/09/2016 Interpretation Summary Technically difficult study limit valve visualization. 1) Normal left ventricular thickness, size, wall motion, and systolic function (EF 60-65%). 2) Proximal septal thickening present, but no left ventricular outflow gradient present. 3) Normal right ventricular size and function. 4) Grade 2 diastolic dysfunction present consistent with elevated filling pressures. 5) Age related calcification of the aortic valve but no significant stenosis or regurgitation present. 6) Mild pulmonary hypertension present, estimated systolic pulmonary pressure of 38mmHg. 7) No prior Echo available for comparison. . Assessment & Plan 81 year old male with a history of asthma, hypertension, and remote esophageal adenocarcinoma (2001) s/p esophagogastrectomy, recent prostate surgery presents to the ED via EMS reporting a sudden onset of productive cough with white/ yellow sputum upon awakening tonight. He was found to have bilateral pulmonary embolism on the CT angio. Acute and/or high-risk problems: #. Acute, unprovoked bilateral pulmonary embolism, present on admission, active. - Patient presented with dyspnea and productive cough. Currently hemodynamically stable, thus no indication for thrombolytic therapy.PE was confirmed with CT angio. Slow progress with warfarin treatment, no increased INR after 48 hours. - Respiratory support with supplemental oxygen as needed for SpO2>90%. - Continue Heparin gtt. - Continue Warfarin. - Explore prior authorization for DOAC on 05/16; consider outpatient Lovenox bridging - Encourage ambulation. # Lower GI bleed, acute, not present on admission. Prior to admission for 2 days he has been having alteration in bowel movements with blood noted. Serial hematocrits have been stable. -Gastroenterology feels that the patient is stable and can have further outpatient investigative studies done and hence we will go ahead and initiate Coumadin therapy and continue with IV heparin and discharge him after 2 days of being therapeutic INR. # Hematuria. Not present on admission. Noted on 05/14. Patient seems worried, due to recent prostate surgery - UA to rule out urine infection - Continue to observe. - If stable, plan outpatient urology follow-up with at [facility] urology in [place], phone [phone] Stable, resolving, and/or chronic problems: #. Intermittent asthma, chronic, stable. He appears to have a chronic productive cough - Resume Albuterol inhaler PRN #. Remote history of esophageal adenocarcinoma, presumed stable. - Stable #. Hypertension, chronic, stable. - Continue home Atenolol after medication reconciliation. (Atenolol listed in the allergy list but patient states he might take Atenolol). - Continue to monitor. 5. Hyperlipidemia, chronic, stable. - Resume home Lovastatin 20mg HS 6. Enlarged prostate, chronic, presume stable. - Continue Tamsulosin. 7. CODE STATUS: FULL per the patient. Patient is admitted under inpatient status with expected length of stay greater than 2 midnights due to severity of presenting symptoms, risk of adverse event, and complexity of treatment plan. GI Prophylaxis: H2 heriberto VTE Prophylaxis: Other (heparin ggt) VTE Mechanical Devices: Intermittant Pneumatic CD Resuscitation Status: CPR: Attempt Resuscitation Time spent 35 minutes Max Wynn MD May 15, 2016 14:16
--- NOTE | 2016-05-15 18:06 | NUR ---
HEMATURIA pt still c/o hematuria, assessed sampled saved by pt. Urine looked purple/dark red. made aware. rounded on pt, however no new orders. heparin still going at 16u/kg/hr.
[2016-05-16] VITALS (8 sets, daily range): BP systolic 104–128; BP diastolic 65–77; PULSE 54–75; RESP 16–22; O2SAT 93–97
[2016-05-16 04:31] LABS: BASOPHILS % (AUTO) 0.3 % (0-3); EOSINOPHILS % (AUTO) 5.3 % (0-5); MONOCYTES % (AUTO) 11.7 % (4-12); Mean Corpuscular Hemoglobin 31.4 pg (27.0-35.0); Mean Corpuscular Volume 96.7 fL (81-100); NEUTROPHILS % (AUTO) 56.3 % (40-74); Platelet Count 161 bil/L (150-400)
[2016-05-16 04:49] LABS: INR 1.09 ratio
--- NOTE | 2016-05-16 06:05 | NUR ---
Resp/ Pt on RA all night with sats in mid 90's. Pt rep[orts SOB with exertion but able to ambulate independently in room. Pt still has dark red urine and is very concerned about this. Pt was assured that MD is aware. Pt denies pain all shift, PTT within goal, therefore no changes in Heparin gtt rate.
[2016-05-16] MEDS: Heparin 25K Unit/500mL 0.45 NS 25,000 UNIT in IV Premix 1 EACH IV SCH (06:52)
[2016-05-16] MEDS: Fluticasone 0.05% 15 Spray/2 Gm 16 Gm Nasal Spray NASAL SCH ×2 (09:11→20:59)
[2016-05-16] MEDS ORDERED: DABI150C PO (10:59)
[2016-05-16] MEDS ORDERED: RIVA20TA PO (10:59)
[2016-05-16] MEDS ORDERED: EDOX60TA PO (10:59)
--- NOTE | 2016-05-16 16:08 | PCM.PNMED ---
Subjective Date of Service May 16, 2016 Subjective 81-year-old man was history of resected esophageal adenocarcinoma presents with acute respiratory distress due to bilateral pulmonary emboli. States he feels generally well. He is worried about his hematuria, which he attributes to warfarin. No dyspnea today. Has been ambulating in [place]. He initiated warfarin on 04/15, but no INR response yet. Exam Vital Signs Vital Sign - Last Date Time Temp Pulse Resp B/P Pulse Ox O2 Delivery O2 Flow Rate FiO2 05/16/16 15:55 36.7 57 22 110/69 96 Room Air Intake and Output 05/15/16 05/15/16 05/16/16 Cumulative From/Thru 14:59 22:59 06:59 05/09/16 01:55 - 05/16/16 06:10 Intake Total 366 ml 917 ml 68132 ml Output Total 1950 ml 5902 ml Balance 366 ml -1033 ml 7099 ml Intake Oral 640 ml 8050 ml IV Total 366 ml 277 ml 4951 ml Output Urine Total 1950 ml 5902 ml # Voids 18 # Bowel Movements 8 Exam General: Healthy-appearing elderly man in no acute distress HEENT: sclerae anicteric, oral mucosa moist Neck: no JVD Chest: clear to auscultation Cardiac: S1S2, regular, no murmur Abdomen: BS normal, non-tender Extremities: No pedal edema Neuro: A&O, cranial nerves symmetric, motor strength 5/5, coordination normal IVs and Medications Medications Reviewed: Medications were reviewed in detail Lab and Diagnostics INR sequential: 1.05, 1.02, 1.04, 1.0915 mg per day Result Diagram: 05/16/16 0910 05/16/16 0407 12-lead ECG Sinus rate (74) and rhythm with no acute ischemic changes. Cardiac Echo Impressions Echocardiogram Report Name: BRYON MADRID LStudy Date: 05/09/2016 Interpretation Summary Technically difficult study limit valve visualization. 1) Normal left ventricular thickness, size, wall motion, and systolic function (EF 60-65%). 2) Proximal septal thickening present, but no left ventricular outflow gradient present. 3) Normal right ventricular size and function. 4) Grade 2 diastolic dysfunction present consistent with elevated filling pressures. 5) Age related calcification of the aortic valve but no significant stenosis or regurgitation present. 6) Mild pulmonary hypertension present, estimated systolic pulmonary pressure of 38mmHg. 7) No prior Echo available for comparison. . Assessment & Plan 81 year old male with a history of asthma, hypertension, and remote esophageal adenocarcinoma (2001) s/p esophagogastrectomy, recent prostate surgery presents to the ED via EMS reporting a sudden onset of productive cough with white/ yellow sputum upon awakening tonight. He was found to have bilateral pulmonary embolism on the CT angio. Acute and/or high-risk problems: #. Acute, unprovoked bilateral pulmonary embolism, present on admission, active. - Patient presented with dyspnea and productive cough. Currently hemodynamically stable, thus no indication for thrombolytic therapy.PE was confirmed with CT angio. Slow progress with warfarin treatment, no increased INR after 48 hours. - Respiratory support with supplemental oxygen as needed for SpO2>90%. - Continue Heparin gtt, plan to switch to therapeutic Lovenox and discharged home to continue warfarin dosing -Prior authorization for DOAC submitted on 05/16 - Encourage ambulation. # Lower GI bleed, acute, not present on admission. Prior to admission for 2 days he has been having alteration in bowel movements with blood noted. Serial hematocrits have been stable. -Gastroenterology feels that the patient is stable and can have further outpatient investigative studies done and hence we will go ahead and initiate Coumadin therapy # Hematuria. Not present on admission. Noted on 05/14. Patient seems worried, due to recent prostate surgery - UA to rule out urine infection - Continue to observe. - If stable, plan outpatient urology follow-up with at [facility] urology in [place], phone [phone] Stable, resolving, and/or chronic problems: #. Intermittent asthma, chronic, stable. He appears to have a chronic productive cough - Resume Albuterol inhaler PRN #. Remote history of esophageal adenocarcinoma, presumed stable. - Stable #. Hypertension, chronic, stable. - Continue home Atenolol after medication reconciliation. (Atenolol listed in the allergy list but patient states he might take Atenolol). - Continue to monitor. 5. Hyperlipidemia, chronic, stable. - Resume home Lovastatin 20mg HS 6. Enlarged prostate, chronic, presume stable. - Continue doxazosin. 7. CODE STATUS: FULL per the patient. Patient is admitted under inpatient status with expected length of stay greater than 2 midnights due to severity of presenting symptoms, risk of adverse event, and complexity of treatment plan. Pain Evaluation: Adequate Pain Control GI Prophylaxis: H2 heriberto VTE Prophylaxis: Other (heparin ggt) VTE Mechanical Devices: Intermittant Pneumatic CD Resuscitation Status: CPR: Attempt Resuscitation Time spent 40 minutes in patient assessment in care coordination including review of data with insurance company to provide adequate prescription coverage for anticoagulant therapy Max Wynn MD May 16, 2016 16:08
--- NOTE | 2016-05-16 18:25 | NUR ---
Tele/Hematuria No reports of chest pain/pressure/discomfort. Tele SR 60s with 1st degree block. BP within normal limits. No reports of SOB at rest. SPO2 on RA mid to high 90s. Output -- 1100 of urine voided, very dark brown with dark red tinge -- MD aware. No reports of n/v/d/c or abdominal pain. Alert and oriented x3, AYOUB, reports full sensation, good strength for age.
[2016-05-17] MEDS: Heparin 25K Unit/500mL 0.45 NS 25,000 UNIT in IV Premix 1 EACH IV SCH (00:04)
[2016-05-17 01:30] VITALS: BP 126/86; PULSE 56; RESP 18; O2SAT 93
--- NOTE | 2016-05-17 05:52 | NUR ---
Sats/hematuria Room air sats remained around 93% throughout the night. Continues with hematuria. PTT was high, and heparin drip was decreased and will be rechecked at 0700. Up in room with steady gait.
[2016-05-17 06:01] LABS: BASOPHILS % (AUTO) 0.5 % (0-3); MONOCYTES % (AUTO) 12.1 % (4-12); Mean Corpuscular Hemoglobin 31.9 pg (27.0-35.0); Mean Corpuscular Volume 96.4 fL (81-100); NEUTROPHILS % (AUTO) 51.6 % (40-74); Platelet Count 157 bil/L (150-400)
[2016-05-17 06:07] VITALS: BP 118/74; PULSE 62; RESP 16; O2SAT 98
[2016-05-17 06:24] LABS: INR 1.21 ratio
[2016-05-17] MEDS: Fluticasone 0.05% 15 Spray/2 Gm 16 Gm Nasal Spray NASAL SCH (08:01)
[2016-05-17 08:16] VITALS: PULSE 61; RESP 18; O2SAT 95
[2016-05-17] MEDS: Albuterol 2.5 mg/3 mL Inhalation Solution NEB PRN (08:16)
[2016-05-17 08:30] VITALS: BP 109/63; PULSE 64; RESP 16; O2SAT 93
[2016-05-17 10:20] VITALS: PULSE 64
--- NOTE | 2016-05-17 10:55 | NUR ---
Social Work: Readiness for d/c Data: Pt is on day 8 of hospitalization. EMR reviewed. MD states approval obtained from [employer] regarding pt's Eliquis authorization. MD to write prescription. No further d/c planning needs at this time. BACTERIOLOGY PROFESSOR will continue to follow if needs arise. Assessment: Pt who is independent at baseline. Plan: Pt will d/c home, likely today per MD, via POV with spouse. No further d/c planning needs at this time. BACTERIOLOGY PROFESSOR will continue to follow if needs arise. MADISON Cavazos
--- NOTE | 2016-05-17 11:10 | PCM.DIMED ---
Discharge Instructions Date of Service May 17, 2016 Dates of Hospitalization May 09, 2016 at 04:14 Discharge Diagnosis Discharge Diagnosis 1. Acute, unprovoked bilateral pulmonary embolism, present on admission, improved. 2. Chronic asthma 3. Remote history of esophageal adenocarcinoma 4. Hypertension 5. Hyperlipidemia 6. BPH 7. Mild hematuria on anticoagulant medication Medication Instructions A new prescription for the anticoagulant Eliquis (apixaban) has been sent to your pharmacy. you will take 2 pills twice a day for approximately 1 week then 1 pill twice per day, indefinitely. You may stop Aspirin for approximately 1 month, while the bleeding in your urine resolves. Test Results Your red blood cell counts have been stable. This indicates that you are not losing significant blood in your urine, despite its red color. Diet No restrictions Activity No restrictions Call your provider Shortness of breath, Other (signs of bleeding in the intestines including jet black stools, or any red blood) Patient Instructions Call Dr. Machado's office for a posthospitalization follow-up appointment as soon as possible 1-2 weeks Call your urologist Dr. Kennedy Conn. Tell him that you have been put on blood thinning medicine for pulmonary embolism (blood clots in your lungs) and that you are having mild bleeding in your urine. Follow-up Provider: Alexy Machado MD Follow-up with PCP in: 1 week Max Wynn MD May 17, 2016 11:10
--- NOTE | 2016-05-17 11:29 | PCM.DC.MED ---
Discharge Summary Date of Service May 17, 2016 Dates of Hospitalization Date of Hospital Admission May 09, 2016 at 04:14 Date of Discharge: May 17, 2016 Providers: Admitting Physician: Meggan Webb DO Primary Care Physician: Alexy Machado MD Attending Physician: Meggan Webb DO Diagnosis at Time of Discharge Diagnosis at Time of Discharge 1. Acute, unprovoked bilateral pulmonary embolism, present on admission, improved. 2. Chronic asthma 3. Remote history of esophageal adenocarcinoma 4. Hypertension 5. Hyperlipidemia 6. BPH 7. Mild hematuria on anticoagulant medication Consultations Gastroenterology: Dr. Dominik Cheatham " Recs - Colonoscopy; defer decision to primary team at this time - Patient wishes to have colonoscopy performed by Dr. Chirag Smith, as Dr. Smith has been following up with this gentleman for many years. Patient is requesting that if a procedure needs to be completed, to please contact Dr. Smith - Continue to monitor stool output - Continue to monitor HH HH levels have been stable, no need for urgent colonoscopy at this time. Continue heparin per protocol. Patient can follow up outpatient with Dr. Smith for colonoscopy scheduling, or inpatient if deemed necessary. If a significant decrease in HH is noted, please do not hesitate to contact our team for urgent/emergent endoscopy, but at this time, we will sign off. " Katelyn Mari MD Procedures XRay, CTs & MRIs PROCEDURE: CT ANGIO CHEST PULMONARY EMBOLISM ([id number]) IMPRESSION: 1. Abnormal study demonstrating bilateral pulmonary emboli. 2. Status post esophagectomy with gastric pull-through. 3. 1 cm left thyroid nodule. 4. Colonic diverticulosis without evidence of diverticulitis. 5. Atherosclerosis including the coronary vasculature. Dictated by: Mague Oden MD, PhD on 05/09/2016 at 9:42 PROCEDURE: US VENOUS LEG DUPLEX BILATERAL IMPRESSION: No DVT found on the right. On the left, however, there is DVT seen within the [id number] superficial femoral vein, without extension into the popliteal vein. Dictated by: Anuj Dias M.D. on 05/10/2016 at 13:16 PROCEDURE: X-RAY CHEST, TWO VIEWS ([id number]) IMPRESSION: 1. No acute cardiopulmonary disease. Dictated by: Gennaro Panchal RR Interpreted: Mague Oden MD on 05/09/2016 at 8:49 . ECG 12 Lead Sinus rate (74) and rhythm with no acute ischemic changes. Cardiac Echo Impression Echocardiogram Report Name: BRYON MADRID LStudy Date: 05/09/2016 Interpretation Summary Technically difficult study limit valve visualization. 1) Normal left ventricular thickness, size, wall motion, and systolic function (EF 60-65%). 2) Proximal septal thickening present, but no left ventricular outflow gradient present. 3) Normal right ventricular size and function. 4) Grade 2 diastolic dysfunction present consistent with elevated filling pressures. 5) Age related calcification of the aortic valve but no significant stenosis or regurgitation present. 6) Mild pulmonary hypertension present, estimated systolic pulmonary pressure of 38mmHg. 7) No prior Echo available for comparison. . Brief History History of Present Illness (per admission note): Mr. Bryon Madrid is an 81 year old [id number] male with a history of asthma, hypertension, and 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 The patient also reports associated shortness of breath after he cannot stop coughing and "spitting up the thick yellow stuff." He denies any cough or shortness of breath prior to this. No recent sick contact or long drive/air flight. He also denies fever, chills, chest pain, headache, hemoptysis, bloody stool, or any other symptoms. He admits some runny nose and mild sore throat from the cough. He does not know his medications or if he got a flu shot this year. He uses the inhaler intermittently for Asthma. He cannot verify the reaction to the drug allergies. Patient has a history of "massive PE" after his esophagogastrectomy surgery in 2001. He reports that his symptoms this time are not as bad and is curious about how he got the blood clots in his lung. Patient's cough has subsided and he denies any symptoms at this time. EMS found the patient with a BP of 142/90, an SAO2 of 93, and otherwise normal vital signs. In the ED, his vital signs were normal as well besides BP of 144/ 72. He was found to have elevated D-Dimer and CT angiogram showed bilateral pulmonary embolism. Heparin drip was initiated. Procalcitonin 0.03 and negative Influenza screen. . Hospital Course #. Acute, unprovoked bilateral pulmonary embolism, present on admission, active. - Patient presented with dyspnea and productive cough. Heparinization initiated. He subsequently developed mild hematuria with no decrease in hemoglobin. Slow progress with warfarin treatment, no increased INR after 72 hours. Prior authorization approved for [place]. Heparin drip and warfarin discontinued - Respiratory support with supplemental oxygen as needed for SpO2>90%. - Continue Heparin gtt, plan to switch to therapeutic Lovenox and discharged home to continue warfarin dosing - Encourage ambulation. # Lower GI bleed, acute, not present on admission. Prior to admission for 2 days he has been having alteration in bowel movements with blood noted. Serial hematocrits have been stable. -Gastroenterology feels that the patient is stable and can have further outpatient investigative studies done and hence we will go ahead and initiate Anticoagulation. He had no further signs of GI bleeding after heparin and initiation accident. - Recommend follow-up referral to gastroenterology by PCP needed # Hematuria. Not present on admission. Noted on 05/14. Patient seems worried, due to recent prostate surgery. Serial hemoglobins were stable in the range of 14. - Patient is advised to tolerate mild hematuria for several weeks if necessary in order to proceed with anticoagulation therapy of his bilateral pulmonary emboli. - Recommend 1 month hiatus from aspirin. - Plan outpatient urology follow-up with at [facility] urology in [place], phone [phone] Stable, resolving, and/or chronic problems: #. Intermittent asthma, chronic, stable. He appears to have a chronic productive cough - Resume Albuterol inhaler PRN #. Remote history of esophageal adenocarcinoma, presumed stable. - Stable #. Hypertension, chronic, stable. - Continue home Atenolol . - Continue to monitor. 5. Hyperlipidemia, chronic, stable. -Continue Lovastatin 20mg HS at discharge 6. Enlarged prostate, chronic, presume stable. - Continue tamsulosin, finasteride. 7. CODE STATUS: FULL per the patient. Exam Vital Signs (Last) Date Time Temp Pulse Resp B/P Pulse Ox O2 Delivery O2 Flow Rate FiO2 05/17/16 10:20 64 05/17/16 08:30 37.0 16 109/63 93 Room Air Exam General: Healthy-appearing elderly man in no acute distress HEENT: sclerae anicteric, oral mucosa moist Chest: clear to auscultation Cardiac: S1S2, regular, no murmur Abdomen: BS normal, non-tender Extremities: No pedal edema Neuro: A&O, cranial nerves symmetric, motor strength and coordination normal Test 05/09/16 01:40 05/09/16 03:40 05/09/16 04:20 05/14/16 17:00 D-Dimer 5.7mg/L (<0.50) Lactic Acid Level 1.4mmol/L (0.4-2.0) Magnesium Level 2.3mg/dL (1.6-2.6) Troponin T 0.010ug/L (0.0-0.011) Pro-B-Type Natriuretic Peptide 168.4pg/mL (0-486) Procalcitonin 0.03ng/mL (0.00-0.08) Urine Color Yellow (YELLOW) Urine Appearance Cloudy (CLEAR,HAZY) Urine pH 6.0 (5.0-8.0) Urine Specific [place] 1.005 (1.003-1.035) Urine Protein Tracemg/dL (NEG,TRACE) Urine Glucose (UA) Negativemg/dL (NEGATIVE) Urine Ketones Negativemg/dL (NEGATIVE) Urine Occult Blood Large (NEGATIVE) Urine Nitrite Negative (NEGATIVE) Urine Bilirubin Negative (NEGATIVE) Urine Urobilinogen Normalmg/dL (NORMAL) Urine Leukocyte Esterase Large (NEGATIVE) Urine RBC 3-10/hpf (0-2) Urine WBC >50/hpf (0-5) Urine Epithelial Cells Occasional/hpf (NONE-MOD) Urine Crystals None seen (NONE SEEN) Urine Bacteria Moderate/hpf (NONE-FEW) Urine Hyaline Casts None/lpf (NONE) Urine Granular Casts None seen (NONE SEEN) Urine Waxy Casts None seen (NONE SEEN) Urine Red Blood Cell Casts None seen (NONE SEEN) Urine White Blood Cell Casts None seen (NONE SEEN) Urine Mucus Present (None Seen) Urine Trichomonas None seen (NONE SEEN) Urine Yeast None (NONE SEEN) Urinalysis Comment None Urine Culture Reflexed Indicated Hold [place] Top Tube Received (Received) Hold Urine Received (Received) Test 05/17/16 05:47 05/17/16 09:25 White Blood Count 5.7th/mm3 (3.8-10.1) Red Blood Count 4.42mil/mm3 (4.40-5.80) Hemoglobin 14.1g/dL (13.8-17.2) Hematocrit 42.6% (41.0-50.0) Mean Corpuscular Volume 96.4fL (81-100) Mean Corpuscular Hemoglobin 31.9pg (27.0-35.0) Mean Corpuscular Hemoglobin Concent 33.1% (32.0-37.0) Red Cell Distribution Width 13.1% (12.3-15.4) Platelet Count 157bil/L (150-400) Neutrophils (%) (Auto) 51.6% (40-74) Lymphocytes (%) (Auto) 29.6% (14-46) Monocytes (%) (Auto) 12.1% (4-12) Eosinophils (%) (Auto) 6.0% (0-5) Basophils (%) (Auto) 0.5% (0-3) Prothrombin Time 13.0sec (8.1-12.5) Prothromb Time International Ratio 1.21ratio Sodium Level 138mEq/L (134-144) Potassium Level 3.7mEq/L (3.5-5.2) Chloride Level 102mEq/L (97-108) Carbon Dioxide Level 24mmol/L (18-29) Blood Urea Nitrogen 9mg/dL (8-27) Creatinine 0.97mg/dL (0.76-1.27) Estimat Glomerular Filtration Rate 79mL/min (>59) Glucose Level 98mg/dL (60-99) Calcium Level 9.3mg/dL (8.5-10.1) Total Bilirubin 0.3mg/dL (0.0-1.2) Aspartate Amino Transf (AST/SGOT) 36U/L (0-50) Alanine Aminotransferase (ALT/SGPT) 42U/L (0-44) Alkaline Phosphatase 81U/L (25-160) Total Protein 6.4g/dL (6.4-8.4) Albumin 3.5g/dL (3.4-5.0) Activated Partial Thromboplast Time 84.0sec (22.8-33.0) Discharge Medications Discharge Medications ([Clotrimazole]) 1 APPLIC TOP BID (Reported) Apixaban (Eliquis) 5 Mg Tablet 10 MG PO BID Prescribed by: MELL SMITH MD Apixaban (Eliquis) 5 Mg Tablet 5 MG PO BID Prescribed by: MELL SMITH MD Ascorbate Calcium (Vitamin C) 500 Mg Tablet 500 MG PO DAILY (Reported) Aspirin (Aspirin) 81 Mg Tablet 81 MG PO DAILY (Reported) Atenolol (Atenolol) 50 Mg Tablet 50 MG PO DAILY (Reported) Atorvastatin Calcium (Atorvastatin Calcium) 10 Mg Tablet 10 MG PO HS (Reported) Cetirizine (Cetirizine) 5 Mg Tablet 10 MG PO DAILY (Reported) Cholecalciferol (Vitamin D3) (Vitamin D3) 1,000 Unit Tab.chew 1,000 UNIT PO DAILY (Reported) Finasteride (Finasteride) 5 Mg Tablet 5 MG PO DAILY (Reported) Fluticasone Propionate (Fluticasone Propionate Nasal) 16 Gm [place].susp 1 SPRAY NS BID (Reported) Fluticasone Propionate (Flovent HFA 110 mcg) 12 Gm Aer.w.adap 1 PUFF IH BID ( Reported) Multivitamin (Multi Vitamin Daily) 1 Each Tablet 1 EACH PO DAILY (Reported) Olopatadine (Patanol) 5 Ml Soln 1 DROP AFFECT_EYE BID (Reported) Omeprazole (Omeprazole) 20 Mg Capsule.dr 20 MG PO Evening (Reported) Tamsulosin ER (Tamsulosin ER) 0.4 Mg Cap.er.24h 0.8 MG PO HS (Reported) As needed Albuterol HFA (Proair HFA) 8.5 Gm Hfa.aer.ad 2 PUFFS INHALATION Q4-6H PRN PRN For Shortness of Breath (Reported) Albuterol Neb Soln (Albuterol Neb Soln) 2.5 Mg/3 Ml Vial.neb 2.5 MG INHALATION 3 -4X daily PRN PRN For Shortness of Breath (Reported) Up to every 2 hrs as needed for SOB Additional med instructions A new prescription for the anticoagulant Eliquis (apixaban) has been sent to your pharmacy. you will take 2 pills twice a day for approximately 1 week then 1 pill twice per day, indefinitely. You may stop Aspirin for approximately 1 month, while the bleeding in your urine resolves. Followup Plan Disposition: home Discharge Diet: No restrictions Discharge Activity: No restrictions Patient Instructions Call Dr. Machado's office for a posthospitalization follow-up appointment as soon as possible 1-2 weeks Call your urologist Dr. Kennedy Conn. Tell him that you have been put on blood thinning medicine for pulmonary embolism (blood clots in your lungs) and that you are having mild bleeding in your urine. Follow-up Provider: Alexy Machado MD Follow-up with PCP in: 1 week Time spent 35 min Attending Statement Please fax dc summary to Dr. Kennedy Conn [facility] urology at FAX: [phone] copies to: Chirag Smith MD; Alexy Machado MD, Jeffrey W MD May 17, 2016 11:14
[2016-05-17 12:14] VITALS: BP 90/57; PULSE 64; RESP 16; O2SAT 96
[2016-05-17] MEDS ORDERED: APIX5TAB PO (13:29)
--- NOTE | 2016-05-17 14:00 | NUR ---
Discharge Patient was provided education on pulmonary embolisms and on the new medication, Eliquis. Pt was given one dose of eliquis this afternoon. Patient and demonstrated understanding of the teaching and were able to repeat parts back to this RN. Peripheral IV was removed and telemetry leads were removed. Pt left the hospital around 1400 with by his side and a staff member escorting them.
--- NOTE | 2016-05-17 14:14 | NUR ---
Social Work: Discharge Data: Pt is on day 8 of hospitalization. EMR reviewed. D/C orders are in. Eliquis pre-auth came through. No further d/c planning needs at this time. HEAD OF INSIGHT will continue to follow if needs arise. Assessment: Pt who is independent at baseline. Plan: Pt will d/c home via POV today. No further d/c planning needs at this time. HEAD OF INSIGHT will continue to follow if needs arise. MADISON Cavazos
== END 2016-05-17 14:25 | disposition home or self-care (01) | DRG 176 ==
LOC: SED 00:58 → PCC 04:14
PROVIDERS: ADMIT Internal Medicine; ATTEND Internal Medicine
DX: I26.99 Other pulmonary embolism without acute cor pulmonale (principal); I82.412 Acute embolism and thrombosis of left femoral vein; K92.2 Gastrointestinal hemorrhage, unspecified; I10 Essential (primary) hypertension; J45.909 Unspecified asthma, uncomplicated; Z87.891 Personal history of nicotine dependence; E78.5 Hyperlipidemia, unspecified; N40.0 Benign prostatic hyperplasia without lower urinary tract symptoms

== ENCOUNTER 2016-06-24 19:57 | Emergency (ER) | payer MEDICARE ==
[~2016-06-24] VITALS: Ht 172.7 cm; Wt 81.0 kg
[~2016-06-24 19:57] MED LIST changes: +APIX5TAB PO; +ATOR10TA66 PO; +CLOTRIMAZOLE TOP; +FINA5TAB9 PO; -LOVA20TA PO; +OLP.1OP5 AFFECT_EYE
[2016-06-24 20:11] VITALS: BP 134/77; PULSE 72; RESP 18; O2SAT 96
--- NOTE | 2016-06-24 21:09 | ED.REPORT ---
HPI-Rash / Abscess Date of Service June 24, 2016 ED Provider: Junior Khanna MD An 81 year old male with a history of hypertension, bilateral PE and remote esophageal adenocarcinoma (2001) s/p esophagogastrectomy presents to the ED with an abscess to his left medial thigh that became increasingly worse this morning. Patient had a similar area one year ago that was removed by a mid level project manager. He reports increased redness, swelling and pain the the affected area. He denies any recent fever or chills. Patient was admitted on 05/09 for bilateral PE and was discharged on 05/17 with a prescription for Eliquis. Nursing Notes Stated Complaint: LEFT LEG LUMP Chief Complaint: Skin Rash/Abscess Nursing Notes Reviewed: Yes Allergies: Coded Allergies: Penicillins (Verified Allergy, Severe, 09/16/15) acetaminophen (Verified Allergy, Severe, 09/16/15) celecoxib (Verified Allergy, Severe, 09/16/15) ibuprofen (Verified Allergy, Severe, 09/16/15) metoclopramide (Verified Allergy, Severe, stomach pains, 09/16/15) propranolol (Verified Allergy, Severe, 09/16/15) pseudoephedrine (Verified Allergy, Severe, 09/16/15) pseudoephedrine HCl (Verified Allergy, Severe, "makes heart skip", 09/16/15 ) sildenafil citrate (Verified Allergy, Severe, "almost killed me", 09/16/15) sulfamethoxazole (Verified Allergy, Severe, 09/16/15) tetracycline (Verified Allergy, Severe, 09/16/15) atenolol (Verified Allergy, Unknown, 09/16/15) clindamycin (Verified Allergy, Unknown, 09/16/15) erythromycin ethylsuccinate (Verified Allergy, Unknown, UNKNOWN, 09/16/15) hydrochlorothiazide (Verified Allergy, Unknown, 09/16/15) levofloxacin (Verified Allergy, Unknown, 09/16/15) trimethoprim (Verified Allergy, Unknown, 09/16/15) Scheduled ([Clotrimazole]) 1 APPLIC TOP BID Apixaban (Eliquis) 5 Mg Tablet 10 MG PO BID Apixaban (Eliquis) 5 Mg Tablet 5 MG PO BID Ascorbate Calcium (Vitamin C) 500 Mg Tablet 500 MG PO DAILY Aspirin (Aspirin) 81 Mg Tablet 81 MG PO DAILY Atenolol (Atenolol) 50 Mg Tablet 50 MG PO DAILY Atorvastatin Calcium (Atorvastatin Calcium) 10 Mg Tablet 10 MG PO HS Cetirizine (Cetirizine) 5 Mg Tablet 10 MG PO DAILY Cholecalciferol (Vitamin D3) (Vitamin D3) 1,000 Unit Tab.chew 1,000 UNIT PO DAILY Finasteride (Finasteride) 5 Mg Tablet 5 MG PO DAILY Fluticasone Propionate (Fluticasone Propionate Nasal) 16 Gm [place].susp 1 SPRAY NS BID Fluticasone Propionate (Flovent HFA 110 mcg) 12 Gm Aer.w.adap 1 PUFF IH BID Multivitamin (Multi Vitamin Daily) 1 Each Tablet 1 EACH PO DAILY Olopatadine (Patanol) 5 Ml Soln 1 DROP AFFECT_EYE BID Omeprazole (Omeprazole) 20 Mg Capsule.dr 20 MG PO Evening Tamsulosin ER (Tamsulosin ER) 0.4 Mg Cap.er.24h 0.8 MG PO HS Scheduled PRN Albuterol HFA (Proair HFA) 8.5 Gm Hfa.aer.ad 2 PUFFS INHALATION Q4-6H PRN PRN For Shortness of Breath Albuterol Neb Soln (Albuterol Neb Soln) 2.5 Mg/3 Ml Vial.neb 2.5 MG INHALATION 3 -4X daily PRN PRN For Shortness of Breath Up to every 2 hrs as needed for SOB General Time Seen by MD: 21:06 Chief Complaint Abscess Hx Obtained From: Patient Arrived By: Walk-in Onset Occurred: 9 - 12 hours ago Symptom Duration: Since onset Location: : Lower extremity Quality: Painful Severity: Current: Mild Severity: Maximum: Mild Pertinent Negative: Pt denies other symptoms Recent Healthcare: Recent doctor visit, Recent hospitalization Past Medical History Past Medical History Notes: PCP: Dr. Machado Current Medications: Cetirizine Eliquis Nasal steroids Albuterol Past Medical History 1. 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 Hard of hearing 3. Asthma 4. Hypertension Past Surgical History 1. Tonsillectomy 2. Esophagogastrectomy 3. 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 Physical Exam Initial Vital Signs Vital Signs (First) Date Time Temp Pulse Resp B/P Pulse Ox O2 Delivery O2 Flow Rate FiO2 //17 20:11 37.0 72 18 134/77 96 Room Air Initial VS: Reviewed, Vital signs normal Head / Eyes: Atraumatic, Normocephalic, PERRL Neck: Supple, Non-tender, Full range of motion Extremities: Vascular intact, Neuro intact, No swelling, No tenderness Neurologic: Alert, Oriented, Nonfocal Psychiatric: Mood/affect normal, Behavior normal, Normal thought content General/Constitutional: Awake, Alert, No acute distress Skin: Atraumatic, Color NL, Warm, Dry Rash / Lesion Location: Positive: Thigh L Abscess Notes: ABSCESS: Left proximal medial thigh 1-2 cm flutuant, tender, erythemtous abscess with 3-4 cm of surrounding erythema Abscess #1 Location/Condition: Positive: Erythema surrounding, Fluctuant, Location (Medial thigh), Tender Respiratory / Chest: Atraumatic, Breath sounds NL, Breath sounds = bilat, No respiratory distress Cardiovascular: Heart rate NL, Regular rhythm, Heart sounds NL Procedures Incision & Drainage Abscess I & D Abscess: The sebaceous cyst was drained but the cyst itself was not removed Time: 21:39 Procedure Performed by: ED physician Consent / Setup / Site Prep: Consent from patient, Time-out performed, Hand hygiene observed, Stand sterile technique, Standard surgical scrub, Sterile drapes applied Location of Abscess: Proximal medial left thigh Skin Preparation Agent: [place]urcl[place] Local Anesthesia: Lidocaine w epi 1% Incised Abscess with Scalpel: #11 Pus Drained: Small, Purulent discharge Irrigation: Copious Post-Procedure / Complications: Drain placed, Culture obtained, Gram stain ordered, Dressing applied, No complications, Condition improved, Tolerated procedure well, Patient stable Re-Eval/Medical Decision Med Decision/Clinical Course Infected sebaceous cyst was drained but not removed. Started on antibiotics and discharged home to follow up with a surgeon. Re-Evaluation/Progress : Time of Eval: 21:40 Patient Status: Condition improved Re-Evaluation/Progress Note: Abscess is incised and drained. Patient tolerates the procedure well. He understands and agrees with the treatment plan. Counseled Regarding: Diagnosis, Need for follow-up, When/why to return to ED Discharge & Departure Impression: Primary Impression: Infected sebaceous cyst Disposition: Home Discharge Condition All VS Reviewed: Yes Condition: Improved Patient Instructions: Abscess (GEN) Additional Instructions: I drained the pus out of the cyst. The cyst itself will have to be removed at later date once the infection is gone. Warm compresses. Cephalexin (Keflex) 500 mg by mouth 3 times a day, #30 dispensed. Make an appointment with the dermatology clinic in 2-3 weeks to get this taken out. Return to the emergency room or your regular doctor if the pus re-collects. Referrals: Alexy Machado MD (PCP) Yaniv Guallpa Attestation Portions of this note were transcribed by Ibis Nogueira. I, Dr. Khanna personally performed the history, physical exam and medical decision-making; I reviewed and confirmed the accuracy of the information in the transcribed note. Signed by: Gisell Hoff, 06/24/16 2212. copies to: Alexy Machado MD, Howard L MD June 24, 2016 21:08 IBIS NOGUEIRA June 24, 2016 21:15
[2016-06-24] MEDS ORDERED: Lidocaine 1%-Epi 1:100,000 20 mL Inj ONE (21:29)
[2016-06-25] MEDS ORDERED: _Cephalexin 500 mg Capsule PO SCH (08:30)
== END 2016-06-24 23:05 | disposition home or self-care (01) ==
LOC: SED 19:57
DX: L72.3 Sebaceous cyst (principal); I10 Essential (primary) hypertension; J45.909 Unspecified asthma, uncomplicated; Z79.82 Long term (current) use of aspirin; Z88.0 Allergy status to penicillin; Z88.1 Allergy status to other antibiotic agents; Z88.2 Allergy status to sulfonamides; Z88.8 Allergy status to other drugs, medicaments and biological substances

== ENCOUNTER 2016-11-17 13:05 | Emergency (ER) | payer MEDICARE ==
[~2016-11-17] VITALS: Ht 172.7 cm; Wt 83.6 kg
[2016-11-17 13:07] VITALS: BP 122/84; PULSE 68; RESP 18; O2SAT 97
--- NOTE | 2016-11-17 13:20 | ED.REPORT ---
HPI-Extremity Problem Lower Date of Service Nov 17, 2016 ED Provider: Ravi Lainez MD The pt is a 81 y/o male w/ a hx of asthma and HTN presenting to the ED due to a R ankle injury yesterday at 1500. The pt reports standing up from the couch, stepping on it wrong, and fell on his R hip, R shoulder, and head. He is also experiencing R sided neck pain. The pt is able to put weight on his R ankle but it causes him pain and he uses a cane. Denies R shoulder, head, or R hip pain. Nursing Notes Stated Complaint: RT FOOT PAIN Chief Complaint: R ankle injury Nursing Notes Reviewed: Yes Allergies: Coded Allergies: Penicillins (Verified Allergy, Severe, 11/17/16) acetaminophen (Verified Allergy, Severe, 11/17/16) celecoxib (Verified Allergy, Severe, 11/17/16) ibuprofen (Verified Allergy, Severe, 11/17/16) metoclopramide (Verified Allergy, Severe, stomach pains, 09/16/15) propranolol (Verified Allergy, Severe, 09/16/15) pseudoephedrine (Verified Allergy, Severe, 09/16/15) pseudoephedrine HCl (Verified Allergy, Severe, "makes heart skip", 09/16/15 ) sildenafil citrate (Verified Allergy, Severe, "almost killed me", 09/16/15) sulfamethoxazole (Verified Allergy, Severe, 09/16/15) tetracycline (Verified Allergy, Severe, 09/16/15) atenolol (Verified Allergy, Unknown, 09/16/15) clindamycin (Verified Allergy, Unknown, 09/16/15) erythromycin ethylsuccinate (Verified Allergy, Unknown, UNKNOWN, 09/16/15) hydrochlorothiazide (Verified Allergy, Unknown, 09/16/15) levofloxacin (Verified Allergy, Unknown, 09/16/15) trimethoprim (Verified Allergy, Unknown, 09/16/15) Scheduled ([Clotrimazole]) 1 APPLIC TOP BID Apixaban (Eliquis) 5 Mg Tablet 10 MG PO BID Apixaban (Eliquis) 5 Mg Tablet 5 MG PO BID Ascorbate Calcium (Vitamin C) 500 Mg Tablet 500 MG PO DAILY Aspirin (Aspirin) 81 Mg Tablet 81 MG PO DAILY Atenolol (Atenolol) 50 Mg Tablet 50 MG PO DAILY Atorvastatin Calcium (Atorvastatin Calcium) 10 Mg Tablet 10 MG PO HS Cetirizine (Cetirizine) 5 Mg Tablet 10 MG PO DAILY Cholecalciferol (Vitamin D3) (Vitamin D3) 1,000 Unit Tab.chew 1,000 UNIT PO DAILY Finasteride (Finasteride) 5 Mg Tablet 5 MG PO DAILY Fluticasone Propionate (Fluticasone Propionate Nasal) 16 Gm Rebuck.susp 1 SPRAY NS BID Fluticasone Propionate (Flovent HFA 110 mcg) 12 Gm Aer.w.adap 1 PUFF IH BID Multivitamin (Multi Vitamin Daily) 1 Each Tablet 1 EACH PO DAILY Olopatadine (Patanol) 5 Ml Soln 1 DROP AFFECT_EYE BID Omeprazole (Omeprazole) 20 Mg Capsule.dr 20 MG PO Evening Tamsulosin ER (Tamsulosin ER) 0.4 Mg Cap.er.24h 0.8 MG PO HS Scheduled PRN Albuterol HFA (Proair HFA) 8.5 Gm Hfa.aer.ad 2 PUFFS INHALATION Q4-6H PRN PRN For Shortness of Breath Albuterol Neb Soln (Albuterol Neb Soln) 2.5 Mg/3 Ml Vial.neb 2.5 MG INHALATION 3 -4X daily PRN PRN For Shortness of Breath Up to every 2 hrs as needed for SOB General Time Seen by MD: 13:15 Chief Complaint Ankle injury right Hx Obtained From: Patient, Spouse Arrived By: Walk-in Onset Occurred: Yesterday Symptom Duration: Since onset Recent Healthcare: No recent hospitalization, Recent doctor visit Similar Sx Previous: No Past Medical History Past Medical History Notes: PCP: Dr. Machado Current Medications: Cetirizine Eliquis Nasal steroids Albuterol Past Medical History 1. 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 Hard of hearing 3. Asthma 4. Hypertension Past Surgical History 1. Tonsillectomy 2. Esophagogastrectomy 3. Skin cancer on shoulder Smoking History Never Smoker Social History Alcohol Use: 1-3 per day Drug Use: Denies drug use Other Social History: Good social support, , Local resident Occupation lives with Ambulatory Status Cane Review of Systems Denies R shoulder, head, or R hip pain; Musculoskeletal: Reports: Joint pain (R ankle), Joint swelling (R ankle), Neck pain (R sided ) Complete sys rev & neg: except as marked. Physical Exam Initial Vital Signs Vital Signs (First) Date Time Temp Pulse Resp B/P Pulse Ox O2 Delivery O2 Flow Rate FiO2 11/17/16 13:07 36.7 68 18 122/84 97 Initial VS: Reviewed General/Constitutional: Well-developed, Well-nourished Head / Eyes: Atraumatic, Normocephalic, PERRL ENT: Mucous membranes moist, Conjunctiva normal, No scleral icterus Respiratory: Breath sounds normal, Clear to auscultation, No respiratory distress Cardiovascular: Regular rate & rhythm, Heart sounds normal, Intact distal pulses Upper Extremities: Vascular intact, Neuro intact, No swelling, No tenderness Skin: Warm, Dry, No cyanosis Neurologic: Alert, Oriented, Nonfocal Psychiatric: Mood/affect normal, Behavior normal, Normal thought content Lower Extremity / Pelvis / MS: No deformity, Neurologic intact, Vascular intact Right Ankle: Positive: ROM reduced, Swelling present... (Mild) R lateral ankle tenderness; Neck: Supple, Full range of motion, No midline vertebral tend R lateral neck tenderness; Interpretation & Diagnostics X-Ray Interpretation Xray Interpretation: IMPRESSION: Minimally displaced fibular fracture and overlying soft tissue swelling. Dictated by: Judy Noel M.D. on 11/17/2016 at 13:44 Approved by: Judy Noel M.D. on 11/17/2016 at 13:45 X-Ray Ordered: Ankle right Interpretation / Wet Read by: Interpret - Radiologist Re-Eval/Medical Decision Med Decision/Clinical Course 81-year-old male with very mildly displaced right distal fibular fracture status post turning his ankle. He preferred to be weightbearing. I discussed with orthopedics and they were okay with him being weightbearing with a walking boot. He will walk with his walker with walking. Weightbearing as tolerated. He will follow up with orthopedics 1 week for repeat x-ray. Return precautions given Source of Hx: Old records Re-Evaluation/Progress : Time of Eval: 14:41 Re-Evaluation/Progress Note: Pt rechecked. Informed pt of x-ray results. Informed pt of plan for treatment. Pt understands and agrees with plan for treatment. F/U instructions and RTER warnings given. All questions addressed. Consultation : Referral / Consult Name: Aric Barksdale DO Consulted With: Orthopedic Call Returned at: 14:30 Blasting Contract Man: Will see patient Note: Dr. Barksdale recommends putting the pt in a walking boot and weightbearing as tolerated. Counseled Regarding: Diagnosis, Lab results, Need for follow-up, When/why to return to ED Discharge & Departure Impression: Primary Impression: Closed right fibular fracture Encounter type: initial encounter Fibula location: distal Fracture morphology: unspecified fracture morphology Qualified Code: S82.831A - Other fracture of upper and lower end of right fibula, initial encounter for closed fracture Disposition: Home Discharge Condition All VS Reviewed: Yes Condition: Stable Patient Instructions: R.I.C.E. Treatment (ED) Additional Instructions: Thank for you entrusting us with your care today. Your x-ray shows that you broke the distal portion of your right fibula. We will put you in a walking boot and you will be able to put weight on your ankle as tolerated but try to avoid putting weight on it as it will allow your ankle to heal better. Do your best to keep your foot elevated as well. Call the orthopedist, Dr. Barksdale, today for an appointment in one week for further follow up. Please return to the emergency department if you experience any new or worsening symptoms. I hope your ankle heals quickly. Referrals: Alexy Machado MD (PCP) Aric Barksdale DO Scribe Attestation Portions of this note were transcribed by Parvez Perez. I, Dr. Lainez personally performed the history, physical exam and medical decision-making; I reviewed and confirmed the accuracy of the information in the transcribed note. copies to: Aric Barksdale DO; Alexy Machado MD, Ben M MD Nov 17, 2016 13:20 Parvez Perez Nov 17, 2016 13:48
--- NOTE | 2016-11-17 13:47 | DRSVH ---
PROCEDURE: X-RAY RIGHT ANKLE, MINIMUM THREE VIEWS ([id number]) INDICATIONS: pain TECHNIQUE: 3 views of the ankle were acquired. COMPARISON: None. FINDINGS: Bones: There is a minimally displaced fracture of the distal fibula. No other acute fracture or dislo cation. The mortise joint is intact. Soft tissues: There is marked soft tissue swelling along the lateral malleolus and a moderate tibiota lar joint effusion. IMPRESSION: Minimally displaced fibular fracture and overlying soft tissue swelling. Dictated by: Judy Noel M.D. on 11/17/2016 at 13:44 Approved by: Judy Noel M.D. on 11/17/2016 at 13:45
[2016-11-17 15:30] VITALS: BP 122/84; PULSE 68; RESP 18; O2SAT 97
== END 2016-11-17 15:31 | disposition home or self-care (01) ==
LOC: SED 13:05
DX: S82.831A Other fracture of upper and lower end of right fibula, initial encounter for closed fracture (principal); W01.0XXA Fall on same level from slipping, tripping and stumbling without subsequent striking against object, initial encounter; Y93.89 Activity, other specified; Y92.019 Unspecified place in single-family (private) house as the place of occurrence of the external cause; Y99.8 Other external cause status; I10 Essential (primary) hypertension; J45.909 Unspecified asthma, uncomplicated; Z79.82 Long term (current) use of aspirin; Z88.0 Allergy status to penicillin; Z88.1 Allergy status to other antibiotic agents; Z88.2 Allergy status to sulfonamides; Z88.6 Allergy status to analgesic agent; Z88.8 Allergy status to other drugs, medicaments and biological substances